=== PATIENT | female | born 1985 | race Caucasian/White ===

== ENCOUNTER 2020-07-14 09:05 | Outpatient (REF) | payer OTHER, SELFPAY ==
--- NOTE | ~2020-07-14 | MM_ITS ---
EXAMINATION: MM DIAGNOSTIC DIGITAL BREAST TOMOSYNTHESIS, BILATERAL US TARGETED LEFT BREAST ULTRASOUND CLINICAL INFORMATION: Left breast lump which patient says feels smaller The lifetime risk of breast cancer based on the Tyrer-Cuzick Model is 8.6%. COMPARISON: Mammography: None. TECHNIQUE: Digital mammography is performed in craniocaudal and mediolateral oblique views. Digital breast tomosynthesis is performed in implant-displaced craniocaudal and implant-displaced mediolateral oblique views. Synthesized 2D images are generated from the tomosynthesis. Computer-aided detection (CAD) is performed for this exam. Targeted left breast ultrasound. FINDINGS: There are scattered areas of fibroglandular density (ACR BI-RADS breast composition Category b). The implant contours are unremarkable. There are no significant masses, abnormal calcifications, or other abnormalities. Targeted left breast ultrasound in region of palpable area at the 8-12 o'clock position, about the areolar was performed. No abnormal cystic or solid mass identified. No region of abnormal distal sound shadowing. No dermal lesion identified. Results are discussed with the patient at time of visit. MM/MM tomosynthesis diag imp BI IMPRESSION: No specific mammographic or ultrasound findings to suggest malignancy. ASSESSMENT: BI-RADS 1: Negative RECOMMENDATION: Clinical management. This patient's information was entered into a reminder system with a target due date for their next mammogram.
--- NOTE | ~2020-07-14 | US_ITS ---
EXAMINATION: US DIAGNOSTIC ULTRASOUND BREAST, BILATERAL CLINICAL INFORMATION: Palpable abnormality which has gotten smaller and was originally read and hot COMPARISON: Mammography of same day. TECHNIQUE: Ultrasound of the breast is performed with real-time peres scale imaging and color Doppler. FINDINGS: Targeted left breast ultrasound in region of palpable area at the 8 to 12:00 position about the areolar was performed. No abnormal cystic or solid mass identified. No region of abnormal distal sound shadowing. No dermal lesion identified. Results are discussed with the patient at time of visit. US/US breast LT limited IMPRESSION: No specific mammographic or ultrasound findings to suggest malignancy. ASSESSMENT: BI-RADS 1: Negative RECOMMENDATION: Clinical management
== END 2020-07-14 09:06 | disposition home or self-care (01) ==
LOC: HO.MAMMO 09:05
PROVIDERS: PCP Internal Medicine; Visit Provider Internal Medicine
DX: N63.25 Unspecified lump in the left breast, overlapping quadrants (principal)
CPT/HCPCS: 76642; 77062; 77066

== ENCOUNTER → 2021-04-19 08:34 | Outpatient (BNVA) | payer OTHER, SELFPAY | PROVIDERS: PCP Internal Medicine; Referring Provider Internal Medicine; Visit Provider Nurse Practitioner | DX: K58.0 Irritable bowel syndrome with diarrhea (principal) | CPT/HCPCS: 99202 ==

== ENCOUNTER 2023-03-27 09:42 | Outpatient (REF) | payer OTHER, SELFPAY ==
[2023-03-27 14:46] LABS: MANUAL DIFF FLAG NO
[2023-03-27 14:50] LABS: Basophils Percent Auto 0.4 % (0-2); Eosinophils Absolute Auto 0.1 X10*3/uL (0.0-0.4); Eosinophils Percent Auto 2.3 % (0-4); Hematocrit 41.2 % (37.0-47.0); Hemoglobin 13.1 g/dl (12.0-16.0); Imm Gran Abs Auto 0.02 X10*3/uL (0.00-0.03); Imm Gran Pct Auto 0.4 % (0.0-0.4); Lymphocytes Absolute Auto 1.7 X10*3/uL (1.2-4.9); Lymphocytes Percent Auto 29.6 % (20-40); Mean Corpuscular HGB Conc 31.8 g/dl (31.0-35.0); Mean Corpuscular Hemoglobin 27.9 pg (27.0-33.0); Mean Corpuscular Volume 87.7 fL (80.0-98.0); Mean Platelet Volume 10.3 fL (9.4-12.3); Monocytes Absolute Auto 0.3 X10*3/uL (0.1-1.2); Monocytes Percent Auto 5.3 % (2-11); Neutrophils Absolute Auto 3.5 x10*3/uL (2.0-8.3); Platelet Count 378 X10*3/uL (160-400); Red Cell Distribution Width 14.5 % (11.0-16.0); White Blood Count 5.6 X10*3/uL (4.8-10.8)
[2023-03-27 14:56] LABS: Estimated Average Glucose 103 mg/dL; Hemoglobin A1C 112.9251 umol/L; Hemoglobin A1c % 5.2 % (<6.0)
[2023-03-27 15:28] LABS: Alanine Aminotransferase 41 U/L (0-31); Albumin Level 4.4 g/dL (3.5-5.0); Alkaline Phosphatase 84 U/L (39-117); Anion Gap 12 (12-20); Aspartate Amino Transferase 31 U/L (5-31); Bilirubin Total 0.2 mg/dL (0.0-1.0); Blood Urea Nitrogen 10 mg/dL (9-16); Calcium 9.8 mg/dL (8.4-10.2); Carbon Dioxide 24 mmol/L (22-29); Chloride 109 mmol/L (96-108); Cholesterol 183 mg/dL (<200); Estimated Glomerular Filt Rate > 60; Glucose Fasting 80 mg/dL (60-99); HDL Cholesterol 41 mg/dL (>40); LDL Cholesterol Calculated 103 mg/dL (<100); Potassium 4.1 mmol/L (3.3-5.1); Sodium 141 mmol/L (135-145); TSH reflex Free T4 2.24 uIU/mL (0.32-4.0); Total Protein 7.6 g/dL (6.5-8.0); Triglycerides 196 mg/dL (<150)
[2023-03-28 08:54] LABS: ~HepC Num1 0.11 S/CO (0.00-0.79); ~Hepatitis C Antibody Nonreactive (Nonreactive)
[2023-03-30 16:39] LABS: HIV RNA PCR Qn Copies Not Detected Copies/mL; HIV RNA PCR Qn Log Copies Not Detected Log cps/mL
== END 2023-03-27 09:43 | disposition home or self-care (01) ==
LOC: HO.CHCLDS 09:42
PROVIDERS: Visit Provider Internal Medicine
DX: Z00.00 Encounter for general adult medical examination without abnormal findings (principal)
CPT/HCPCS: 36415; 80053; 80061; 83036; 84443; 85025; 86803; 87536; 87900

== ENCOUNTER 2023-06-20 08:33 | Outpatient (REF) | payer OTHER, SELFPAY ==
[2023-06-20 11:21] LABS: MANUAL DIFF FLAG NO
[2023-06-20 11:25] LABS: Basophils Percent Auto 0.4 % (0-2); Hematocrit 41.2 % (37.0-47.0); Hemoglobin 13.4 g/dl (12.0-16.0); Imm Gran Abs Auto 0.03 X10*3/uL (0.00-0.03); Imm Gran Pct Auto 0.4 % (0.0-0.4); Lymphocytes Percent Auto 29.3 % (20-40); Mean Corpuscular HGB Conc 32.5 g/dl (31.0-35.0); Mean Corpuscular Hemoglobin 27.7 pg (27.0-33.0); Mean Corpuscular Volume 85.3 fL (80.0-98.0); Mean Platelet Volume 10.1 fL (9.4-12.3); Monocytes Absolute Auto 0.4 X10*3/uL (0.1-1.2); Neutrophils Absolute Auto 4.4 x10*3/uL (2.0-8.3); Neutrophils Percent Auto 63.9 % (45-73); Platelet Count 375 X10*3/uL (160-400); Red Blood Count 4.83 X10*6/uL (4.20-5.50); Red Cell Distribution Width 13.6 % (11.0-16.0); White Blood Count 6.9 X10*3/uL (4.8-10.8)
[2023-06-20 12:14] LABS: Estimated Average Glucose 97 mg/dL
[2023-06-20 13:54] LABS: Alanine Aminotransferase 43 U/L (0-31); Albumin Level 4.6 g/dL (3.5-5.0); Alkaline Phosphatase 95 U/L (39-117); Anion Gap 13 (12-20); Aspartate Amino Transferase 30 U/L (5-31); Bilirubin Direct 0.1 mg/dL (0.0-0.5); Bilirubin Total 0.3 mg/dL (0.0-1.0); Blood Urea Nitrogen 9 mg/dL (9-16); Carbon Dioxide 27 mmol/L (22-29); Chloride 106 mmol/L (96-108); Cholesterol 172 mg/dL (<200); Estimated Glomerular Filt Rate > 60; Free T4 (Free Thyroxine) 0.86 ng/dL (0.71-1.85); Glucose Random 96 mg/dL (60-115); HCG Quantitative < 2 mIU/mL; HDL Cholesterol 38 mg/dL (>40); LDL Cholesterol Calculated 73 mg/dL (<100); Potassium 4.3 mmol/L (3.3-5.1); Sodium 142 mmol/L (135-145); Thyroid Stimulating Hormone 1.76 uIU/mL (0.32-4.0); Total Protein 7.9 g/dL (6.5-8.0); Triglycerides 305 mg/dL (<150)
== END 2023-06-20 08:34 | disposition home or self-care (01) ==
LOC: HO.HHCL 08:33
PROVIDERS: Visit Provider Nurse Practitioner Family
DX: Z13.6 Encounter for screening for cardiovascular disorders (principal); F29 Unspecified psychosis not due to a substance or known physiological condition
CPT/HCPCS: 36415; 80053; 80061; 82248; 83036; 84439; 84443; 84702; 85025

== ENCOUNTER 2023-07-12 14:05 | Outpatient (REF) | payer OTHER, SELFPAY ==
[2023-07-13 04:04] LABS: HIV AB/AG Nonreactive (Nonreactive); HIV Num 1 0.04 S/CO (0.00-0.99); ~HepC Num1 0.12 S/CO (0.00-0.79); ~Hepatitis C Antibody Nonreactive (Nonreactive)
[2023-07-16 09:28] LABS: RPR Rapid Plasma Reagin NON-REACTIVE (NON-REACTIVE)
== END 2023-07-12 14:06 | disposition home or self-care (01) ==
LOC: HO.HHCL 14:05
PROVIDERS: Visit Provider General Practice
DX: R30.0 Dysuria (principal)
CPT/HCPCS: 36415; 86592; 86803; 87389

== ENCOUNTER 2023-09-18 13:04 | Outpatient (REF) | payer OTHER, SELFPAY ==
[2023-09-18 14:42] LABS: Appearance Urine Cloudy; Color Urine Yellow; Glucose Urine UA Negative (Negative); Leukocyte Esterase Urine Negative (Negative); Nitrite Urine Negative (Negative); PH 5.5 (5.0-9.0); Specific Gravity - Urine 1.025 (1.005-1.025); Urine Blood Negative (Negative); Urine Ketones Negative (Negative); Urine Protein Negative (Neg-Trace)
[2023-09-18 14:58] LABS: Bacteria Urine Trace (None Seen); Hyaline Casts Urine 0-2 /LPF (0-2); RBC Urine 0-2 /HPF (0-2); WBC Urine 0-5 /HPF (0-5)
[2023-09-18 16:15] LABS: CT PCR NOT DETECTED (Not Detect.); NG PCR NOT DETECTED (Not Detect.)
== END 2023-09-18 13:05 | disposition home or self-care (01) ==
LOC: HO.CHCLDS 13:04
PROVIDERS: General Practice; Visit Provider Internal Medicine
DX: R35.0 Frequency of micturition (principal); R30.0 Dysuria
CPT/HCPCS: 0353U; 81001

== ENCOUNTER 2025-01-18 09:41 | Emergency (ER) | payer OTHER, SELFPAY ==
[2025-01-18] VITALS (7 sets, daily range): BP systolic 110–118; BP diastolic 61–73; PULSE 70–87; RESP 16–20; TEMP 36.3–36.7; O2SAT 97–98; BMI 32.9
--- NOTE | ~2025-01-18 | XR_ITS ---
CLINICAL HISTORY: erect position only 1 view abdomen Comparison: None provided Findings: No pneumoperitoneum or pneumatosis. Moderate fecal retention within the proximal colon. No bowel dilatation. No abnormal calcifications. No acute fractures. IMPRESSION: Nonspecific bowel gas pattern without evidence of an obstructive process. This document has been electronically signed by: Chaparrita Pizano MD on 01/18/2025 16:12:32
[2025-01-18 10:05] LABS: MANUAL DIFF FLAG NO
[2025-01-18 10:07] LABS: Hematocrit 36.4 % (37.0-47.0); Hemoglobin 12.9 g/dl (12.0-16.0); Imm Gran Abs Auto 0.01 X10*3/uL (0.00-0.03); Imm Gran Pct Auto 0.1 % (0.0-0.4); Lymphocytes Absolute Auto 1.6 X10*3/uL (1.2-4.9); Mean Corpuscular HGB Conc 35.4 g/dl (31.0-35.0); Mean Corpuscular Hemoglobin 29.7 pg (27.0-33.0); Mean Corpuscular Volume 83.7 fL (80.0-98.0); NRBC Abs Auto 0.000 X10*3/uL (0.0-0.012); NRBC Pct Auto 0.0 /100WBC (0.0-0.2); Platelet Count 339 X10*3/uL (160-400); Red Blood Count 4.35 X10*6/uL (4.20-5.50); White Blood Count 6.8 X10*3/uL (4.8-10.8)
[2025-01-18 10:08] LABS: Appearance Urine Clear; Glucose Urine UA Negative (Negative); PH 5.5 (5.0-9.0); Specific Gravity - Urine 1.020 (1.005-1.025)
--- NOTE | 2025-01-18 10:17 | PC.NURSE ---
Pt went to [facility] yestrday with same complaint. They took CT scan, EKG, blood work. All negative. Pt reports Left side abdominal pain 10/10, nausea, vomiting. Took Tylenol and Ibuprofen yesterday, none today. Heat and other home remedies not working. Has not had this kind of pain before. Walking helps. LMP 01/12/25. Hx tubal ligation, takes trazadone, xyprexa, clonidine at home.
--- OUTSIDE RECORDS SUMMARY | 2025-01-18 10:21 | XMS_ITS | Encounter Summary ---
Author Organization [employer] Address [address] [place] [address] Care Team Providers Care Seed Cleaner Operator Name Role Phone Daniel Gutierrez MD Primary Care Prov ider Reason for Visit * Reason Onset Date Comments Med Refill 09/13/2022 Encounter Details Date Type Department Care Team ([facility] Contact Info) Description 09/13/2022 Telephone [facility] MED & PEDS [address] [place] [address] Daniel Gutierrez MD [address] [place] [address] Med Refill Social History Tobacco Use Types Packs/Day Years Used Date Smoking Tobacco: Never Assessed Comments Unknown Sex and Gender Information Value Date Recorded Sex Assigned at Female 02/13/2022 10:17 AM EDT Legal Sex Female 10:17 AM EDT Gender Identity Female 02/13/2022 10:17 AM EDT Sexual Orientation Straight 02/13/2022 10 :17 AM EDT documented as of this encounter Miscellaneous Notes * Telephone Encounter - Walt Strauss - 09/13/2022 10:13 AM EDT Tc from pt requesting med refill on nicotine (Nicoderm, Step 1) 21 MG/24HR patch Please sent to [facility]/pharmacy #[id number] - [place]ABI PEREZ - [address] [place] [address] documented in this encounter Plan of Treatment Upcoming Encounters Date Type Department Care Team (Late st Contact Info) Description 01/19/2025 9:15 AM EDT Office Visit [facility] MED & PEDS [address] [place] [address] Agustina Pérez MD [address] [place] [address] documented as of this encounter Visit Diagnoses Not on filedocumented in this encounter Care Teams Seed Cleaner Operator Relationship Specialty Start Date End Date Daniel Gutierrez MD [address] [place] [address] PCP - General Internal Medicine 08/28/19 [facility] 08/28/19 documented as of this encounter
--- OUTSIDE RECORDS SUMMARY | 2025-01-18 10:21 | XMS_ITS | Encounter Summary ---
Author Organization [employer] Address [address] [facility] 7 [place] [address] Care Team Providers Care Tier Lift Truck Operator Name Role Phone Daniel Gutierrez MD Primary Care Prov ider Reason for Visit * Reason Onset Date Comments Durable Medical Equipment 07/24/2024 Encounter Details Date Type Department Care Team ([facility] st Contact Info) Description 07/24/2024 Telephone [facility] MEDICINE [address] [place] [address] Daniel Gutierrez MD [address] [place] [address] Durable Medical Equipment Social History Tobacco Use Types Packs/Day Years Used Date Smoking Tobacco: Former Cigarettes Smokeless Tobacco: Never Depression Answer Date Recorded Patient Health Questionnaire-9 Score 0 03/27/2023 Patient Health Questionnaire-9 Score 0 03/27/2023 Last PHQ-9: Questionnaire Data Not on file 1 05/28/2022 Housing Stability Answer Date Recorded What is your housing situation today? I have charles gilman 03/20/[address] you li ve. Do you have problems with any of the following? None of the above 03/20/2023 Food Insecurity Answer Date Recorded Within the past 12 months, y ou worried that your food would run out before you got money to buy more: Never True 03/20/2023 Within the past 12 months,th e food you bought just didn't last and you didn't have enough money to get more: Never True 08/2022 Transportation Answer Date Recorded In the past 12 months, has l ack of transportation kept you from medical appts, meetings, work or from getting things needed for daily living? No 03/20/2023 Utilities Answer Date Recorded In the past 12 months, has t he electric, gas, oil or water company threatened to shut off services in your home? No 03/20/2023 Depression Answer Date Recorded Patient Health Questionnaire-2 Score 0 03/27/2023 Comments Unknown Sex and Gender Information Value Date Recorded Sex Assigned at Female 02/13/2022 10:17 AM EDT Legal Sex Female 10:17 AM EDT Gender Identity Female 02/13/2022 10:17 AM EDT Sexual Orientation Straight 02/13/2022 10 :17 AM EDT documented as of this encounter Miscellaneous Notes * Telephone Encounter - Natalia Hough LPN - 07/25/2024 10:05 AM EDT Satnam Persaud MD , Can you please review Bere Jones 's chart and advised on next steps to complete request for this patient. Natalia Huogh LPN Tc from pt requesting wipes, pt report using 1/2 package a day. Laboratory Animal Facility Supervisor asked how many she needs, she states all that you can give me . No quantity was provided to screenplay writer. * Telephone Encounter - Jenn Lorenz - 07/24/2024 9:43 AM EDT Tc from pt requesting wipes, pt report using 1/2 package a day. Laboratory Animal Facility Supervisor asked how many she needs, she states all that you can give me . No quantity was provided to screenplay writer. documented in this encounter Plan of Treatment Upcoming Encounters Date Type Department Care Team (Late st Contact Info) Description 01/19/2025 9:15 AM EDT Office Visit [facility] MED & PEDS [address] [place] [address] Agustina Pérez MD [address] [place] [address] documented as of this encounter Visit Diagnoses Not on filedocumented in this encounter Additional Health Concerns Assessment Noted Time PHQ-9 Depression Total Score: 0 03/27/20 23 8:55 AM EST documented as of this encounter Care Teams Tier Lift Truck Operator Relationship Specialty Start Date End Date Daniel Gutierrez MD [address] [place] [address] PCP - General Internal Medicine 08/28/19 [facility] 08/28/19 documented as of this encounter
--- OUTSIDE RECORDS SUMMARY | 2025-01-18 10:21 | XMS_ITS | Encounter Summary ---
Author Organization [employer] Address [address] [facility] 7 [place] [address] Care Team Providers Care Books Salesperson Name Role Phone Daniel Gutierrez MD Primary Care Prov ider Reason for Visit * Reason Onset Date Comments Results 03/29/2023 Encounter Details Date Type Department Care Team ([facility] st Contact Info) Description 03/29/2023 Telephone [facility] MEDICINE [address] [place] [address] Daniel Gutierrez MD [address] [place] [address] Results Social History Tobacco Use Types Packs/Day Years Used Date Smoking Tobacco: Every Day Cigarettes Depression Answer Date Recorded Patient Health Questionnaire-9 [...] encounter Miscellaneous Notes * Telephone Encounter - Aubrie Schrader RN - 03/29/2023 3:11 PM EST Returned call to pt regarding message below. Pt informed of lab results WNL except for lifestyle modifications to lower triglyceride levels. Pt verbalized understanding and agrees with plan. * Telephone Encounter - Joselito Pleitez - 03/29/2023 11:01 AM EST Tc from patient requesting call back in regards to lab orders would like to know the results. documented in this encounter Plan of Treatment Upcoming Encounters Date Type Department Care Team (Late st Contact Info) Description 01/19/2025 9:15 AM EDT Office Visit [facility] MED & PEDS [address] [place] [address] Agustina Pérez MD [address] [place] [address] documented as of this encounter Visit Diagnoses Not on filedocumented in this encounter Additional Health Concerns Assessment Noted Time PHQ-9 Depression Total Score: 0 03/27/20 23 8:55 AM EST documented as of this encounter Care Teams Books Salesperson Relationship Specialty Start Date End Date Daniel Gutierrez MD [address] [place] [address] PCP - General Internal Medicine 08/28/19 [facility] 08/28/19 documented as of this encounter
--- OUTSIDE RECORDS SUMMARY | 2025-01-18 10:21 | XMS_ITS | Encounter Summary ---
Author Organization [employer] Address [address] [place] [address] Care Team Providers Care Clinical Rehabilitation Liaison Name Role Phone Daniel Gutierrez MD Primary Care Prov ider Reason for Visit * Reason Onset Date Comments Medication Question 04/03/2023 Encounter Details Date Type Department Care Team ([facility] st Contact Info) Description 04/03/2023 Telephone [facility] CH[facility] MED & PEDS [address] [place] [address] Daniel Gutierrez MD [address] [place] [address] Medication Question Social History Tobacco Use Types Packs/Day Years [...] encounter Miscellaneous Notes * Telephone Encounter - Joselito Pleitez - 04/06/2023 9:36 AM EST Tc from patient calling to requesting the status in regards to message below * Telephone Encounter - Joselito Pleitez - 04/05/2023 10:43 AM EST Tc from patient calling to request staus in regards to message below * Telephone Encounter - Bobbi Sifuentes RN - 04/03/2023 4:21 PM EST TC placed to patient to follow up on request for vitamins. Patient reports that she is not and is not planning to get . She reports that her psychiatrist wants her to take aprenatal or multivitamin because she is currently taking three psych medications daily (clonidine, trazodone, and zyprexa) and it is important for her to have adequate vitamins and minerals. Routing to PCP for review of request for script for prenatals or multivitamins. * Telephone Encounter - Walt Strauss - 04/03/2023 12:29 PM EST Tc from pt requesting if provider could prescribed vitamins due to lack of vitamins. Pt states she was advised by her Phychiatric of this. Please contact pt @ [phone] documented in this encounter Plan of Treatment Upcoming Encounters Date Type Department Care Team ([facility] st Contact Info) Description 01/19/2025 9:15 AM EDT Office Visit [facility] MED & PEDS [address] [place], [place] [phone] Agustina Pérez MD [address] [place] [address] documented as of this encounter Visit Diagnoses Not on filedocumented in this encounter Additional Health Concerns Assessment Noted Time PHQ-9 Depression Total Score: 0 03/27/20 23 8:55 AM EST documented as of this encounter Care Teams Clinical Rehabilitation Liaison Relationship Specialty Start Date End Date Daniel Gutierrez MD [address] [place] [address] PCP - General Internal Medicine 08/28/19 [facility] 08/28/19 documented as of this encounter
--- OUTSIDE RECORDS SUMMARY | 2025-01-18 10:21 | XMS_ITS | Encounter Summary ---
Author Organization [employer] Address [address] [facility] 7t [place] [address] Care Team Providers Care Spring Former Name Role Phone Daniel Gutierrez MD Primary Care Prov ider Encounter Details Date Type Department Care Team ([facility] st Contact Info) Description 01/17/2025 Telephone [facility] MEDICINE [address] [place], [place] [phone] Flower Geller NP [address] [place] [address] Social History Tobacco Use Types Packs/Day Years [...] encounter Miscellaneous Notes * Telephone Encounter - Flower Geller NP - 01/17/2025 8:53 PM EDT gold miner provider received message from NTT[employer] regarding patient with complains of of abdominal pain. Describes excruciating abdominal pain that is constant and feels like sharp, twisting and aching present x4 days. States pain starts in epigastric region and extends down to left pelvic area. Says shewas seen at [facility] last night with negative CT scan, EKG, urine, and blood tests . She has tried heating pads, tylenol, ibuprofen and single prilosec with no improvement. She is advised to return toED given degree of discomfort, however she refuses. She is agreeable to going to nearest urgent care and plans to do so Sunday am. Advised to seek help at different ED if symptoms should progress overnight. She verbalizes understanding. documented in this encounter Plan of Treatment Upcoming Encounters Date Type Department Care Team (Late st Contact Info) Description 01/19/2025 9:15 AM EDT Office Visit [facility] MED & PEDS [address] [place] [address] Agustina Pérez MD [address] [place] [address] documented as of this encounter Visit Diagnoses Not on filedocumented in this encounter Additional Health Concerns Assessment Noted Time PHQ-9 Depression Total Score: 0 03/27/20 8:55 AM EST documented as of this encounter Care Teams Spring Former Relationship Specialty Start Date End Date Daniel Gutierrez MD [address] [place] [address] PCP - General Internal Medicine 08/28/19 [facility] 08/28/19 documented as of this encounter
--- OUTSIDE RECORDS SUMMARY | 2025-01-18 10:21 | XMS_ITS | Encounter Summary ---
Author Organization [employer] Address [address] [place] [address] 7 [place] [address] Care Team Providers Care Buyers' Agent Name Role Phone Daniel Gutierrez MD Primary Care Prov ider Encounter Details Date Type Department Care Team (Late st Contact Info) Description 04/26/2022 Orders Only [facility] MEDICINE [address] [place], [place] [phone] Daniel Gutierrez MD [address] [place], [place] [phone] Smoker Social History Tobacco Use Types Packs/Day Years Used Date Smoking Tobacco: Never Assessed Comments Unknown Sex and Gender Information Value Date Recorded Sex Assigned at Female 02/13/2022 10:17 AM EDT Legal Sex Female 10:17 AM EDT Gender Identity Female 02/13/2022 10:17 AM EDT Sexual Orientation Straight 02/13/2022 10 :17 AM EDT COVID-19 Exposure Response Date Recorded In the last 10 days, have yo u been in contact with someone who was confirmed or suspected to have Coronavirus/COVID-19? No / Unsure 04/28/2022 9:02 AM EST documented as of this encounter Plan of Treatment Upcoming Encounters Date Type Department Care Team (Late st Contact Info) Description 01/19/2025 9:15 AM EDT Office Visit [facility] MED & PEDS [address] [place], [place] [phone] Agustina Pérez MD [address] [place], [place] [phone] documented as of this encounter Visit Diagnoses Diagnosis Smoker Tobacco use disorder documented in this encounter Care Teams Buyers' Agent Relationship Specialty Start Date End Date Daniel Gutierrez MD [address] [place] [address] PCP - General Internal Medicine 08/28/19 [facility] [place] [facility] 08/28/19 documented as of this encounter
--- OUTSIDE RECORDS SUMMARY | 2025-01-18 10:21 | XMS_ITS | Encounter Summary ---
Author Organization [employer] Address [address] [place] [address] [place], [place] [address] Care Team Providers Care Conveyor Operator Name Role Phone Daniel Gutierrez MD Primary Care Prov ider Encounter Details Date Type Department Care Team ([facility] Contact Info) Description 02/22/2023 Orders Only [facility] MED & PEDS [address] [place] [address] Daniel Gutierrez MD [address] [place] [address] Social History Tobacco Use Types Packs/Day Years Used Date Smoking Tobacco: Every Day Cigarettes Comments Unknown Sex and Gender Information Value Date Recorded Sex Assigned at Female 02/13/2022 10:17 AM EDT Legal Sex Female 10:17 AM EDT Gender Identity Female 02/13/2022 10:17 AM EDT Sexual Orientation Straight 02/13/2022 10 :17 AM EDT documented as of this encounter Plan of Treatment Upcoming Encounters Date Type Department Care Team (Late st Contact Info) Description 01/19/2025 9:15 AM EDT Office Visit [facility] MED & PEDS [address] [place], [place] [phone] Agustina Pérez MD [address] [place] [address] documented as of this encounter Visit Diagnoses Not on filedocumented in this encounter Care Teams Conveyor Operator Relationship Specialty Start Date End Date Daniel Gutierrez MD [address] [place] [address] PCP - General Internal Medicine 08/28/19 [facility] 08/28/19 documented as of this encounter
--- OUTSIDE RECORDS SUMMARY | 2025-01-18 10:21 | XMS_ITS | Encounter Summary ---
Author Organization [employer] Address [address] [place] [address] Care Team Providers Care Switchboard Receptionist Name Role Phone Daniel Gutierrez MD Primary Care Prov ider Reason for Visit * Reason Onset Date Comments Medication Question 08/10/2023 Encounter Details Date Type Department Care Team ([facility] st Contact Info) Description 08/10/2023 Telephone [facility] MED & PEDS [address] [place] [address] Daniel Gutierrez MD [address] [place] [address] Medication Question Social History Tobacco Use Types [...] encounter Miscellaneous Notes * Telephone Encounter - Wing Cameron RN - 08/13/2023 2:19 PM EDT Tc to pt who reports applying cream twice day for almost a month and the rashes on her back and chest are not getting better and are described as 'scabby . Scheduled telehealth appt with PCP today at3:15 pm. Pt verbalized understanding and agreement with plan. * Telephone Encounter - Chyna Gallardo - 08/10/2023 11:06 AM EDT Tc from pt states nystatin (Mycostatin) cream is not working. Please contact pt at [phone] documented in this encounter Plan of Treatment Upcoming Encounters Date Type Department Care Team (Late st Contact Info) Description 01/19/2025 9:15 AM EDT Office Visit [facility] MED & PEDS [address] [place] [address] Agustina Pérez MD [address] [place] [address] documented as of this encounter Visit Diagnoses Not on filedocumented in this encounter Additional Health Concerns Assessment Noted Time PHQ-9 Depression Total Score: 0 03/27/20 23 8:55 AM EST documented as of this encounter Care Teams Switchboard Receptionist Relationship Specialty Start Date End Date Daniel Gutierrez MD [address] [place] [address] PCP - General Internal Medicine 08/28/19 [facility] 08/28/19 documented as of this encounter
--- OUTSIDE RECORDS SUMMARY | 2025-01-18 10:21 | XMS_ITS | Encounter Summary ---
Author Organization [employer] Address [address] [place] [address] Care Team Providers Care Care Program Resident Name Role Phone Daniel Gutierrez MD Primary Care Prov ider Encounter Details Date Type Department Care Team (Late st Contact Info) Description 07/12/2022 Abstract [facility] MEDICINE [address] [place] [address] Daniel Gutierrez MD [address] [place] [address] Social History Tobacco Use Types Packs/Day Years [...] Description 01/19/2025 9:15 AM EDT Office Visit [facility] MED & PEDS [address] [place], [place] [phone] Agustina Pérez MD [address] [place], [place] [phone] documented as of this encounter Visit Diagnoses Not on filedocumented in this encounter Care Teams Care Program Resident Relationship Specialty Start Date End Date Daniel Gutierrez MD [address] [place] [address] PCP - General Internal Medicine 08/28/19 [facility] 08/28/19 documented as of this encounter
--- OUTSIDE RECORDS SUMMARY | 2025-01-18 10:21 | XMS_ITS | Encounter Summary ---
Author Organization [facility] [employer] Address [address] [facility] 7 [place] [address] Care Team Providers Care Photographers' Model Name Role Phone Daniel Gutierrez MD Primary Care Prov ider Reason for Visit * Reason Onset Date Comments Nurse Triage 02/13/2024 Encounter Details Date Type Department Care Team (Late st Contact Info) Description 02/13/2024 Telephone [facility] MEDICINE [address] [place] [address] Daniel Gutierrez MD [address] [place] [address] Nurse Triage Social History Tobacco Use Types Packs/Day Years [...] AM EDT documented as of this encounter Functional Status * Over the last 2 weeks, how often have you been bothered by any of the following problems? Question Answer Date of Assessment Author Feeling nervous, anxious, or on edge 1 01/16 10:02 AM Elke Wall [place] Not being able to stop or co ntrol worrying 0 02/14/2024 10:02 AM Elke Wall [place] Worrying too much about diff erent things 0 02/14/2024 10:02 AM Elke Wall [place] Trouble relaxing 0 02/14/2024 10:02 AM Elke Wall MA Being so restless that it is hard to sit still 0 02/14/2024 10:02 AM Elke Wall MA Becoming easily annoyed or irritable 0 01/16 10:02 AM Elke Wall [place] Feeling afraid as if somethi ng awful might happen 0 02/14/2024 10:02 AM Elke Wall [place] REGULO-7 Total Score 1 02/14/2024 10:02 AM Elke Wall [place] documented as of this encounter Miscellaneous Notes * Telephone Encounter - Farideh Hawk RN - 02/13/2024 12:31 PM EDT Triage call Pt reports increased anxiety due to new neighbor. Pt reports the new neighbor is banging on Pt wall to request lower television volume, has called the police due to this complaint. Policehave come to Pt home to follow up complaint without finding any reason for this complaint. Pt has gone to police department and filed a counter complaint as well. Pt is requesting a note from regarding Pt anxiety and the concern for this harrassment as causing Pt to become more anxious at home. Pt denies suicidal ideation or desire to hurt any one. Pt is taking medication as prescribed by psychiatrist, clonidine, trazadone and zyprexa and is feeling fine. Pt is not in any distress during the triage call and is requesting to speak with PCP. TSK visit with PCP Dr. Solomon scheduled for02/14/24 @ 1015am. Pt agrees with disposition and insurance is verified as active prior to booking. Protocol Used: Anxiety and Panic Attack (Adult) Protocol-Based Disposition: See in Office or Video Visit within 3 Days Video visit offered and caller accepted Positive Triage Question: * Patient wants to be seen * All higher-acuity triage questions were negative Care Advice Discussed: * Note to Triager - Anxiety Symptoms * Reassurance and Education - Anxiety * Reasons To Call Back - Anxiety or panic attacks continue - You feel like harming yourself - You become worse * Telephone Encounter - Ricardo Dwyer - 02/13/2024 12:11 PM EDT Symptom: Anxiety or Panic Attack Outcome: Schedule an appointment to be seen within 3 days Reason: Caller denied all higher acuity questions documented in this encounter Plan of Treatment Upcoming Encounters Date Type Department Care Team (Late st Contact Info) Description 01/19/2025 9:15 AM EDT Office Visit [facility] MED & PEDS [address] [place] [address] Agustina Pérez MD [address] [place] [address] documented as of this encounter Visit Diagnoses Not on filedocumented in this encounter Additional Health Concerns Assessment Noted Time PHQ-9 Depression Total Score: 0 03/27/20 23 8:55 AM EST documented as of this encounter Care Teams Photographers' Model Relationship Specialty Start Date End Date Daniel Gutierrez MD [address] [place] [id number] PCP - General Internal Medicine 08/28/19 [facility] 08/28/19 documented as of this encounter
--- OUTSIDE RECORDS SUMMARY | 2025-01-18 10:21 | XMS_ITS | Encounter Summary ---
Author Organization [employer] Address [address] [address] Care Team Providers Care Engraver Letter Name Role Phone Daniel Gutierrez MD Primary Care Prov ider Reason for Visit * Reason Onset Date Comments Lab Orders 03/14/2023 Encounter Details Date Type Department Care Team (Late st Contact Info) Description 03/14/2023 Telephone [facility] MEDICINE [address] [place] [address] Daniel Gutierrez MD [address] [place] [address] Lab Orders Social History Tobacco Use Types Packs/Day Years [...] Telephone Encounter - Aubrie Schrader RN - 03/14/2023 4:29 PM EST Pt is scheduled to see you on 03/27/23 and is requesting routine lab work to be done prior to appt.Please review and advise if orders can be placed. * Telephone Encounter - Bridget Ruelas - 03/14/2023 9:11 AM EST Tc from pt requesting blood work orders before appt on 03/27/2023. Pt is requesting a call back when orders are in the system to make sure is what's she need. documented in this encounter Plan of Treatment Upcoming Encounters Date Type Department Care Team (Late st Contact Info) Description 01/19/2025 9:15 AM EDT Office Visit [facility] MED & PEDS [address] [place], [place] [phone] Agustina Pérez MD [address] [place] [address] documented as of this encounter Visit Diagnoses Not on filedocumented in this encounter Care Teams Engraver Letter Relationship Specialty Start Date End Date SolomonDaniel Wilson MD [address] [place], [place] [phone] PCP - General Internal Medicine 08/28/19 [facility] 08/28/19 documented as of this encounter
--- OUTSIDE RECORDS SUMMARY | 2025-01-18 10:21 | XMS_ITS | Encounter Summary ---
Author Organization [employer] Address [address] [facility] 7t [place] [address] Care Team Providers Care Welt Cutter Name Role Phone Daniel Gutierrez MD Primary Care Prov ider Encounter Details Date Type Department Care Team ([facility] st Contact Info) Description 12/12/2023 Orders Only [facility] [address] [place], [place] [phone] Jaime Rose MD [address] [place], [place] [phone] Social History Tobacco Use Types Packs/Day Years [...] Description 01/19/2025 9:15 AM EDT Office Visit [facility] MED & PEDS [address] [place] [address] Agustina Pérez MD [address] [place] [address] documented as of this encounter Visit Diagnoses Not on filedocumented in this encounter Additional Health Concerns Assessment Noted Time PHQ-9 Depression Total Score: 0 03/27/20 23 8:55 AM EST documented as of this encounter Care Teams Welt Cutter Relationship Specialty Start Date End Date Daniel Gutierrez MD [address] [place] [address] PCP - General Internal Medicine 08/28/19 [facility] 08/28/19 documented as of this encounter
--- OUTSIDE RECORDS SUMMARY | 2025-01-18 10:21 | XMS_ITS | Encounter Summary ---
Author Organization [email or web address] Address [address] [place] [address] 7 [place] [address] Care Team Providers Care Manager Recruitment Name Role Phone Daniel Gutierrez MD Primary Care Prov ider Encounter Details Date Type Department Care Team ([facility] st Contact Info) Description 09/18/2023 Orders Only [facility] MED & PEDS [address] [place], [place] [phone] Daniel Gutierrez MD [address] [place] [address] Social History Tobacco Use Types Packs/Day Years Used Date Smoking Tobacco: Every Day Cigarettes Depression Answer Date Recorded Patient Health Questionnaire-9 Score 0 03/27/2023 Patient Health Questionnaire-9 Score 0 03/27/2023 Last PHQ-9: Questionnaire Data Not on file 1 05/28/2022 Housing Stability Answer Date Recorded What is your housing situation today? I have charles gimlan 03/20/[address] you li [...] Description 01/19/2025 9:15 AM EDT Office Visit [facility] MED & PEDS [address] [place] [address] Agustina Pérez MD [address] [place] [address] documented as of this encounter Visit Diagnoses Not on filedocumented in this encounter Additional Health Concerns Assessment Noted Time PHQ-9 Depression Total Score: 0 03/27/20 23 8:55 AM EST documented as of this encounter Care Teams Manager Recruitment Relationship Specialty Start Date End Date Daniel Gutierrez MD [address] [place] [address] PCP - General Internal Medicine 08/28/19 [facility] 08/28/19 documented as of this encounter
--- OUTSIDE RECORDS SUMMARY | 2025-01-18 10:21 | XMS_ITS | Encounter Summary ---
Author Organization [employer] Address [address] [facility] 7 [place] [address] Care Team Providers Care Collections Rep Name Role Phone Daniel Gutierrez MD Primary Care Prov ider Reason for Visit * Reason Onset Date Comments Med Refill 11/20/2024 Encounter Details Date Type Department Care Team (Late st Contact Info) Description 11/20/2024 Telephone [facility] MEDICINE [address] [place] [address] Daniel Gutierrez MD [address] [place] [address] Med Refill Social History Tobacco Use Types [...] Telephone Encounter - Wing Cameron RN - 12/05/2024 11:40 AM EDT Tc to pt to relay that patches were ordered by PCP today and should be ready soon. Pt reports she is already on her way to get them. * Telephone Encounter - Ricardo Dwyer - 12/04/2024 3:53 PM EDT Tc from pt calling in regards to message prior stating she not received anything back in two weeks. * Telephone Encounter - Lyubov Stern - 12/01/2024 12:49 PM EDT Tc from pt requesting to speak to accounting office manager regarding medication refill request nicotine (Nicoderm, Step 1) 21 MG/24HR patch * Telephone Encounter - Lyubov Stern - 11/27/2024 10:38 AM EDT Tc from pt requesting status on medication refill. * Telephone Encounter - Mary Ellen Roberts LPN - 11/20/2024 11:30 AM EDT Please review medication is not on current med list * Telephone Encounter - Frederick Liu - 11/20/2024 11:23 AM EDT TC from pt requesting medication refill. Medications needing refill : nicotine (Nicoderm, Step 1) 21 MG/24HR patch To be sent to: [facility]/pharmacy #[id number] - [place] - [address] [place] [address] documented in this encounter Plan of Treatment Upcoming Encounters Date Type Department Care Team ([facility] st Contact Info) Description 01/19/2025 9:15 AM EDT Office Visit [facility] MED & PEDS [address] [place] [address] Agustina Pérez MD [address] [place] [address] documented as of this encounter Visit Diagnoses Not on filedocumented in this encounter Additional Health Concerns Assessment Noted Time PHQ-9 Depression Total Score: 0 03/27/20 23 8:55 AM EST documented as of this encounter Care Teams Collections Rep Relationship Specialty Start Date End Date Daniel Gutierrez MD [address] [place] [address] PCP - General Internal Medicine 08/28/19 [facility] 08/28/19 documented as of this encounter
--- OUTSIDE RECORDS SUMMARY | 2025-01-18 10:21 | XMS_ITS | Encounter Summary ---
Author Organization [employer] Address [address] [place] [address] 7 [place] [address] Care Team Providers Care Grounds Worker Name Role Phone Daniel Gutierrez MD Primary Care Prov ider Encounter Details Date Type Department Care Team ([facility] st Contact Info) Description 05/16/2023 Orders Only [facility] MED & PEDS [address] [place] [address] Daniel Gutierrez MD [address] [place] [address] Social History Tobacco Use Types Packs/Day Years [...] Description 01/19/2025 9:15 AM EDT Office Visit [facility] MED & PEDS [address] [place] [address] Agustina Pérez MD [address] [place] [address] documented as of this encounter Visit Diagnoses Not on filedocumented in this encounter Additional Health Concerns Assessment Noted Time PHQ-9 Depression Total Score: 0 03/27/20 23 8:55 AM EST documented as of this encounter Care Teams Grounds Worker Relationship Specialty Start Date End Date Daniel Gutierrez MD [address] [place] [address] PCP - General Internal Medicine 08/28/19 [facility] 08/28/19 documented as of this encounter
--- OUTSIDE RECORDS SUMMARY | 2025-01-18 10:21 | XMS_ITS | Clinical Summary ---
Author Organization [employer] Address [address] [place] [address] 7[address] [place] [address] Care Team Providers Care Vulcanized Fiber Unit Operator Name Role Phone Daniel Gutierrez MD Primary Care Prov ider Allergies Active Allergy Reactions Criticality Noted Date Comments Nitrofurantoin Hives 03/01/2017 Other reaction(s): Hives Medications * This document contains information received from the source organization and may not represent a complete record from that organization. albuterol 108 (90 Base) MCG/ACT inhalerIndication s:Mild intermittent asthma without complication Inhale 2 puffs every 6 (six) hours if needed for wheezing. 18 g 11 3 Active famotidine (Pepcid) 20 MG tablet TAKE 1 TABLET BY MOUTH IF NEEDED IN THE MORNING AND AT BEDTIME FOR HEARTBURN 180 tablet 4 Active nystatin (Mycostatin) cream Apply topically every 12 (twelve) hours. 30 g 3 4 Active triamcinolone (Kenalog) 0.1 % cream Apply topically if needed in the morning and at bedtime (pain and swelling). 30 g 5 4 Active traZODone (Desyrel) 100 MG tablet Take 200 mg by mouth at bedtime. Active OLANZapine (ZyPREXA) 10 MG tablet Take 10 mg by mouth at bedtime. Active cloNIDine (Catapres) 0.3 MG tablet Take 0.3 mg by mouth 2 times daily. Active Vit-Fe Fumarate-FA ([facility] ) 27-0.8 MG tablet TAKE 1 TABLET BY MOUTH EVERY DAY IN THE MORNING 90 tablet 1 5 Active nicotine (Nicoderm CQ) 14 MG/24HR patch Place 1 patch on the skin 1 (one) time each day at the same time. 30 patch 5 Active nicotine (Nicoderm CQ) 21 MG/24HR patch Place 1 patch on the skin 1 (one) time each day at the same time. 30 patch 5 Active Active Problems Problem Noted Date Diagnosed Date Mixed stress and urge urinary incontinence 08/15 Assessment & Plan (11/10/2024 10:36 AM EDT): Patient will follow up with urogyn for possible surgery, will follow up reccomendations Assessment & Plan (08/15/2024 9:27 AM EDT): Will prescribe oxybutinin, kegel exercise reinforced, follow up in 2 weeks History of bilateral tubal ligation 12/12/2023 Anxiety 07/12/2023 Assessment & Plan (02/14/2024 10:39 AM EDT): Patient followed by therapist and psychiatrist, her symptoms have been exacerbated recently due to issues with neighbor, told to take clonidine from 2 to 3 times when symptoms of anxiety occur. Class 2 obesity 07/12/2023 Assessment & Plan (11/10/2024 10:35 AM EDT): Patient did not tolerated phentermine, she is going to the gym and trying to make diet changes, discussed benefits and encouraged to keep making little changes weekly, follow up as needed Assessment & Plan (08/15/2024 9:26 AM EDT): Will start on phentermine, risk vs benefits discussed, will follow up in 2 months Assessment & Plan (05/20/2024 9:25 PM EST): Discussed with patient clinical findings, encouraged to keep low fat/carb diet. Exercise 15-20 min every other day, follow up as needed depression 07/12/2023 Uncomplicated asthma 07/12/2023 Physical exam 03/27/2023 Assessment & Plan (03/27/2023 9:23 AM EST): Patient physical examination was unremarkable, no thyroid nodules were palpated, no heart murmurs, no chest pain/shotness of breath Gastroesophageal reflux disease without esophagi tis 03/27/2023 Assessment & Plan (03/27/2023 9:31 AM EST): Controlled with lifestyle modifications and famotidine, no changes will be made Mood disorder 08/03/2022 Assessment & Plan (03/27/2023 9:28 AM EST): Stable, no suicidal/homicidal ideas reported Assessment & Plan (08/03/2022 5:37 PM EDT): Patient refer that for the past 4 years she has been receiving VNA services, refers that lately has been having issues because they can come at any time during the day, she I requesting to be taken off serivces, but due to her mental illness I told her I would prefer to leave her on the current services. She would feel that if they can come at a specific time of the day and not random, it would be more beneficial, will ask if company can visit her at a predetermined time. Mild intermittent asthma without complication Assessment & Plan (03/27/2023 9:31 AM EST): Controlled after smoking cessation, no changes will be made Assessment & Plan (04/28/2022 10:38 AM EST): On albuterol as needed, refers using it less than 1 a month, reinforced importance of smoking cessation, no changes will be made Cervical intraepithelial neoplasia grade 2 08/16 Overview (07/12/2023): colpo done 08/17/11. will refer for tx options Resolved Problems Problem Noted Date Diagnosed Date Resolved Date Severe obesity (BMI 35.0-39. 9) with comorbidity (CMS/HCC) 02/14/2024 05/20/2024 Smoker 04/26/2022 12/12/2023 Assessment & Plan (03/27/2023 9:30 AM EST): Patient stopped smoking almost 6 months ago, congratulated her. Assessment & Plan (04/28/2022 10:38 AM EST): Patient currrently smoking 1 pack a day, will order 21 mg nicotine patch Encounters Date Type Department Care Team Description 01/17/2025 Telephone [facility] MEDICINE [address] [place] [phone] Flower Geller NP 01/16/2025 Telephone [facility] MEDICINE [address] [place] [address] Daniel Gutierrez MD ER Follow-up 12/05/2024 Orders Only [facility] MED & PEDS [address] [place] [address] Daniel Gutierrez MD 11/20/[address] [address] Daniel Gutierrez MD Med Refill 11/10/2024 8:45 AM EDT Telemedicine [facility]S [address] [place] [address] Daniel Gutierrez MD Class 2 obesity (Primary Dx); Mixed stress and urge urinary incontinence 11/10/2024 Travel from Last 3 Months Immunizations Immunization Administration Dates Next Due HPV, Quadrivalent 02/22/2017,09/08/2011,07/11/19 12 Influenza injectable quadriv alent preservative free 03/27/2023,02/22/2021,01/14/2019,2018,01/04/2018,01/15/2017 Tdap 03/27/2023 Social History Tobacco Use Types Packs/Day Years [...] Orientation Straight 02/13/2022 10 :17 AM EDT Last Filed Vital Signs Vital Sign Reading Time Taken Comments Blood Pressure 118/70 05/20/2024 10:11 AM EST Pulse 88 05/20/2024 10:11 AM EST Temperature 37.1 C (98.7 F) 05/20/2024 10:11 AM EST Respiratory Rate 20 05/20/2024 10:11 AM EST Oxygen Saturation 97% 12/12/2023 9:24 AM EDT Inhaled Oxygen Concentration - - Weight 89.8 kg (198 lb) 08/15/2024 9:13 AM EDT Height 163.8 cm (5' 4.5 ) 05/20/2024 10:11 AM ES T Body Mass Index 33.46 05/20/2024 10:11 AM EST Plan of Treatment Upcoming Encounters Date Type Department Care Team (Late st Contact Info) Description 01/19/2025 9:15 AM EDT Office Visit [facility] MED & PEDS [address] [place] [address] Agustina Pérez MD [address] [place] [address] Health Maintenance Due Date Last Done Comments Disability Screening 1987 Alcohol/Substance Use Screening 1999 Family Planning (PISQ) 2002 Hepatitis B Vaccines (1 of 3 - 19+ 3-dose series) 2006 Pneumococcal Vaccine: Pediatrics (0 to 5 Years) and At-Risk Patients (6 to 49) Years (1 of 2 - PCV) 2006 SDOH Screening 03/20/2024 03/20/2023 Depression Screening 03/27/2024 03/27/2023, 03/27/20 23 Tobacco Screening 12/11/2024 12/12/2023 COVID-19 Vaccine ( season) 2024 10/11/2020, 09/17/2020 Influenza Vaccine (#1) 2024 , 02/22/2021, 01/14/2019, Additional history exists Cervical Cancer Screening 02/22/2026 HPV/Cotest 02/22/2026 02/22/2021 Pap Smear 02/22/2026 02/22/2021 Lipid Panel 03/27/2028 03/27/2023, 01/05/2022 DTaP/Tdap/Td Vaccines (2 - Td or Tdap) 03/27/2033 03/27/2023 Zoster Vaccines (1 of 2) 2037 RSV Patients and Patients Aged 60 years or older (1 - 1-dose 75+ series) 2062 HPV Vaccines Completed 02/22/2017, 08/15, 07/11/2011 HIV Screening Completed 07/12/2023 Hepatitis C Screening Completed 07/12/2023, 023 HIB Vaccines Aged Out No longer eligi ble based on patient's age to complete this topic Hepatitis A Vaccines Aged Out No long er eligible based on patient's age to complete this topic IPV Vaccines Aged Out No longer eligi ble based on patient's age to complete this topic Meningococcal B Vaccine Aged Out No l onger eligible based on patient's age to complete this topic Meningococcal Vaccine Aged Out No candice ekaterina eligible based on patient's age to complete this topic RSV under 20 months Aged Out No longe r eligible based on patient's age to complete this topic Rotavirus Vaccines Aged Out No longer eligible based on patient's age to complete this topic Procedures Procedure Name Priority Date/Time Associated Diagnosis Comments URINALYSIS WITH REFLEX MICROSCOPIC Routine 01/18/2025 9:58 AM EDT CBC WITH AUTO DIFFERENTIAL Routine 01/18/2025 9:58 AM EDT HEPATITIS C AB W/REFL TO HCV RNA, QN, PCR Routine 07/12/2023 2:07 PM EDT Dysuria HIV 1/2 ANTIGEN/ANTIBODY, FOURTH GENERATION W/RFL Routine 07/12/2023 2:07 PM EDT Dysuria LIPID PANEL, STANDARD Routine 03/27/2023 9:48 AM EST Physical exam THINPREP IMAGING PAP AND HPV MRNA E6/E7 WITH REFLEX TO HPV 16,18/45 Routine 02/22/2021 9:30 AM EST from Last 3 Months or Most Recently Relevant to Health Maintenance Results * (ABNORMAL) CBC auto differential (01/18/2025 9:58 AM EDT) White Blood Count 6.8 4.8 - 10.8 X10*3/uL [facility] Red Blood Count 4.35 4.20 - 5.50 X10*6/uL [facility] Hemoglobin 12.9 12.0 - 16.0 g/dl [facility] Hematocrit 36.4(L) 37.0 - 47.0 % [facility] Mean Corpuscular Volume 83.7 80.0 - 98.0 fL [facility] Mean Corpuscular Hemoglobin 29.7 27.0 - 33.0 pg [facility] Mean Corpuscular HGB Conc 35.4(H) 31.0 - 35.0 g/dl [facility] Red Cell Distribution Width 13.5 11.0 - 16.0 % [facility] Platelet Count 339 160 - 400 X10*3/uL [facility] Mean Platelet Volume 9.4 9.4 - 12.3 fL [facility] Neutrophils Percent Auto 69.7 45 - 73 % [facility] Imm Gran Pct Auto 0.1 0.0 - 0.4 % [facility] Lymphocytes Percent Auto 23.3 20 - 40 % [facility] Monocytes Percent Auto 6.6 2 - 11 % [facility] Eosinophils Percent Auto 0.0 0 - 4 % [facility] Basophils Percent Auto 0.3 0 - 2 % [facility] NRBC Pct Auto 0.0 0.0 - 0.2 /100WBC [facility] Neutrophils Absolute Auto 4.8 2.0 - 8.3 x10*3/uL [facility] Imm Gran Abs Auto 0.01 0.00 - 0.03 X10*3/uL [facility] Lymphocytes Absolute Auto 1.6 1.2 - 4.9 X10*3/uL [facility] Monocytes Absolute Auto 0.5 0.1 - 1.2 X10*3/uL [facility] Eosinophils Absolute Auto 0.0 0.0 - 0.4 X10*3/uL [facility] Basophils Absolute Auto 0.0 0.0 - 0.2 X10*3/uL [facility] NRBC Abs Auto 0.000 0.0 - 0.012 X10*3/uL [facility] 01/18/2025 9:58 AM EDT 01/18/2025 10:04 AM EDT us Generic External Data Provider LAB BLOOD ORDERAB LES Final Result [facility] [address] [place], [place] [phone] * Urinalysis w/reflex microscopic (01/18/2025 9:58 AM EDT) Color Urine Yellow [facility] Appearance Urine Clear [facility] PH 5.5 5.0 - 9.0 [facility] Glucose Urine UA Negative Negative mg/dL [facility] Urine Blood Negative Negative [facility] Specific Alum [place] - Urine 1.020 1.005 - 1.025 [facility] Urine Protein Negative Neg-Trace mg/dL [facility] Urine Ketones Negative Negative mg/dL [facility] Nitrite Urine Negative Negative [facility] Leukocyte Esterase Urine Negative Negative [facility] 01/18/2025 9:58 AM EDT 01/18/2025 10:04 AM EDT Narrative [facility] - 01/18/2025 10:09 AM EDT [id number], Clean Catch us Generic External Data Provider LAB URINE ORDERAB LES Final Result Performing Organization Address [facility]/ZIP Co de Phone Number [facility] [address] [place] [phone] * Hepatitis C Antibody with Reflex to HCV, RNA, Quantitative, Real-Time PCR (07/12/2023 2:07 PM EDT) Hepatitis C Antibody Nonreactive Nonreactive [facility] Comment:Antibodies to HCV no t detected; does not exclude early acuteHCV infection. Blood Venous blood specimen / Unknown 07/12/2023 2:07 PM EDT 07/12/2023 4:12 PM EDT us Laisha Arauz MD LAB BLOOD ORDERABLES Final Res ult Performing Organization Address [facility]/ZIP Co de Phone Number [facility] [address] [place] [address] [phone] * HIV-1/2 Antigen and Antibodies, Fourth Generation, with Reflexes (07/12/2023 2:07 PM EDT) HIV AB/AG Nonreactive Nonreactive [facility] Comment:HIV-1 p24 Ag and/or HIV-1/HIV-2 Ab not detected.A test result that is nonreactive does not exclude thepossibility of exposure to or infection with HIV-1 and/orHIV-2. Nonreactive results in this assay for individualswith prior exposure to HIV-1 and/or HIV-2 may be due toantigen and antibody levels that are below the limit ofdetection of this assay.The [employer] HIV Ag/Ab Combo assay result andsupplemental assay results should be interpreted inconjunction with the patient's clinical presentation,history and other laboratory results. If the results areinconsistent with clinical evidence, additional testing issuggested to confirm the result. Blood Venous blood specimen / Unknown 07/12/2023 2:07 PM EDT 07/12/2023 4:12 PM EDT us Laisha Arauz MD LAB BLOOD ORDERABLES Final Res ult [facility] [address] [place] [address] [phone] * (ABNORMAL) Lipid Panel, Standard (03/27/2023 9:48 AM EST) Triglycerides 196(H) <150 mg/dL [facility] Comment:Desirable Triglyceri de: less than 150 mg/dLBorderline High Triglyceride 150-199 mg/dLHigh Triglyceride: 200-499 mg/dLVery High Triglyceride: greater than or equal to 5OO mg/dL Cholesterol 183 <200 mg/dL [facility] Comment:Desirable Cholestero l: less than 200 mg/dLBorderline High Cholesterol: 200-239 mg/dLHigh Cholesterol: greater than 239 mg/dL LDL Cholesterol Calculated 103(H) <100 mg/dL [facility] Comment:Desirable LDL: less than 100 mg/dLNear Optimal/Above Optimal LDL: 110- 129 mg/dLBorderline High LDL: 130-159 mg/dLHigh LDL: 160-189 mg/dLVery High LDL: greater than or equal to 190 mg/dL HDL Cholesterol 41 >40 mg/dL [facility] Comment:Desirable HDL: great er than 40 mg/dL Note: This HDL assay may give artificially low results in patients with liver disease. Blood Venous blood specimen / Unknown 03/27/2023 9:48 AM EST 03/27/2023 2:40 PM EST us Daniel Persaud MD LAB BLOOD ORDERABL ES Final Result [facility] [address] [place] [phone] * THINPREP TIS PAP AND HPV mRNA E6/E7 REFLEX HPV 16,18/45 (02/22/2021 9:30 AM EST) Clinical Information: None given [facility] COMMENT SEE COMMENT [facility] Comment: EXPLANATORY NOTE: The Pap is a screening test for cervical cancer. It is not a diagnostic test and is subject to false negative and false positive results. It is most reliable when a satisfactory sample, regularly obtained, is submitted with relevant clinical findings and history, and when the Pap result is evaluated along with historic and current clinical information. COMMENT: This Pap test has been evaluated with computer assisted technology. [facility] Buffing Wheel Former Automatic: SEE COMMENT [facility] Comment: CXP, CT(ASCP) CT screening location: [place] [address] HPV nRNA E6/E7 Not Detected Not Detected [facility] Comment: Methodology: Milieu Coordinator-Mediated Amplification This assay detects E6/E7 viral messenger RNA (mRNA) from 14 high-risk HPV types (16,18,31,33,35,39,45,51,52,56,58,59,66,68). The analytical performance characteristics of this assay have been determined by [employer]. The modifications have not been cleared or approved by the FDA. This assay has been validated pursuant to the CLIA regulations and is used for clinical purposes. For additional information, please refer to http://education.[employer].Digg/faq/USH160l4 (This link if provided for information/ educational purposes only.) Infection Shift in vaginal jeane suggestive of bacterial vaginosis. [facility] Interpretation/Re sult: Negative for intraepithelial lesion or malignancy. [facility] LMP: 02/16/21 [facility] Prev. BX: NONE GIVEN [facility] Prev. PAP: NONE GIVEN [facility] SOURCE: None given [facility] Statement Of Adequacy: SEE COMMENT [facility] Comment: Satisfactory for evaluation. Endocervical/transformation zone component present. 02/22/2021 9:3 0 AM EST us Ladan Jewels CN LAB PATHOLOGY ORDERABLES Final Result [facility] [address] from Last 3 Months or Most Recently Relevant to Health Maintenance Insurance [facility] < [address] [phone] Care Teams Vulcanized Fiber Unit Operator Relationship Specialty Start Date End Date Daniel Gutierrez MD [address] [facility] [place] [address] PCP - General Internal Medicine 08/28/19 [facility] 08/28/19
--- OUTSIDE RECORDS SUMMARY | 2025-01-18 10:21 | XMS_ITS ---
Author Name [facility] Organization Unknown Encounters Encounter Type Encounter Reason Primary Diagnosis Location Date Ambulatory TBE Generalized abdo alexy pain [facility]) 01/18/2025 Care Team Organization Name Specialty Phone Email Start Date End Da [facility] 01/18/2025
--- OUTSIDE RECORDS SUMMARY | 2025-01-18 10:21 | XMS_ITS | Encounter Summary ---
Author Organization [employer] Address [address] [facility] 7 [place] [address] Care Team Providers Care Customer Service Cashier Name Role Phone Daniel Gutierrez MD Primary Care Prov ider Reason for Visit * Reason Onset Date Comments ER Follow-up 01/16/2025 Encounter Details Date Type Department Care Team ([facility] st Contact Info) Description 01/16/2025 Telephone [facility] MEDICINE [address] [place] [address] Daniel Gutierrez MD [address] [place] [address] ER Follow-up Social History Tobacco Use Types Packs/Day Years [...] encounter Miscellaneous Notes * Telephone Encounter - Elsi Mak RN - 01/16/2025 12:52 PM EDT called pt to triage, spoke to pt. pt states seen ER at [facility] for 3 days duration of left sided abdominal pain from left breast area down to the umbilicus. pt states was not told a diagnosis, but all her testing and scans were normal. nothing acute found in the ER. pt denies current severe pain, vomiting, diarrhea, or other associated symptoms. pt states intermittent nausea and dizziness as well. given ER follow up with [facility] provider at 9:15 for exam, follow up and any referrals needed. advised home care: rest, fluids, light diet, follow ER discharge instructions, and call back if worsening or new concerns. pt understands and agrees with plan. insurance verified. Protocol Used: Abdominal Pain - Female (Adult) Protocol-Based Disposition: Seen in ER today, and needs ER follow up. Video visit not offered Positive Triage Question: * Patient wants to be seen * All higher-acuity triage questions were negative Care Advice Discussed: * Rest * Drink Clear Fluids * Diet * Pass a Stool * Avoid Aspirin and NSAIDs * Reasons To Call Back - You become worse * Telephone Encounter - Kassidy Bharat Mcelroy - 01/16/2025 12:22 PM EDT Patient calling to report ED visit on : Date: 01/16 Hospital: [facility] Seen for: Abdominal pain Symptomatic Yes *if yes message should go to Triage Patient advised will forward to team nurse for follow up Contact pt at [phone] * Telephone Encounter - Ricardo Dwyer - 01/16/2025 11:33 AM EDT Tc from pt called In to inform she is currently in the ER and would like to schedule follow appointment, appeals writer advised to call back once they're officially discharged. documented in this encounter Plan of Treatment Upcoming Encounters Date Type Department Care Team ([facility] st Contact Info) Description 01/19/2025 9:15 AM EDT Office Visit [facility] MED & PEDS [address] [place] [address] Agustina Pérez MD [address] [place] [address] documented as of this encounter Visit Diagnoses Not on filedocumented in this encounter Additional Health Concerns Assessment Noted Time PHQ-9 Depression Total Score: 0 03/27/20 23 8:55 AM EST documented as of this encounter Care Teams Customer Service Cashier Relationship Specialty Start Date End Date Daniel Gutierrez MD [address] [place] [address] PCP - General Internal Medicine 08/28/19 [facility] 08/28/19 documented as of this encounter
--- OUTSIDE RECORDS SUMMARY | 2025-01-18 10:21 | XMS_ITS | Clinical Summary ---
Author Organization [address] [facility] Address [address] [place] [address] Phone Care Team Providers Care Die Set Up Worker Name Role Phone Unavailable Primary Care Provider Unavailabl e Social History Tobacco Use Types Packs/Day Years Used Date Smoking Tobacco: Never Assessed Comments Unknown Sex and Gender Information Value Date Recorded Sex Assigned at Not on file Legal Sex Female 1:09 PM EST Gender Identity Not on file Sexual Orientation Not on file Plan of Treatment Upcoming Encounters Date Type Department Care Team ([facility] st Contact Info) Description 02/10/2025 11:00 AM EDT Office Visit Urogynecology [address] [phone] Loretta Alvarez MD [address] [phone] Health Maintenance Due Date Last Done Comments DTaP,Tdap,and Td Vaccines (1 - Tdap) 2006 Hepatitis B Vaccines (1 of 3 - 19+ 3-dose series) 2006 Cervical Cancer Screening: P ap Smear 2008 HPV Vaccines (1 - 3-dose SCD M series) 2014 Depression Screening 04/16/2024 HIV Screening 10/28/2024 Hepatitis C Screening 10/28/2024 Social Influencers of Health Screening 10/28/2024 COVID-19 Vaccine ( - 2023-2 5 season) 2024 Influenza Vaccine (#1) 2024 RSV Immunization Adult Patie nts (1 - 1-dose 75+ series) 2062 HIB Vaccines Aged Out No longer eligi ble based on patient's age to complete this topic Hepatitis A Vaccines Aged Out No long er eligible based on patient's age to complete this topic IPV Vaccines Aged Out No longer eligi ble based on patient's age to complete this topic MMR Vaccines Aged Out No longer eligi ble based on patient's age to complete this topic Meningococcal ACWY Vaccine Aged Out N o longer eligible based on patient's age to complete this topic Meningococcal B Vaccine Aged Out No l onger eligible based on patient's age to complete this topic Pneumococcal Vaccine: Pediat rics (0 to 5 Years) and At-Risk Patients (6 to 49 Years) Aged Out No longer eligible b ased on patient's age to complete this topic RSV Immunization Patients Un pancho 20 months Aged Out No longer eligible b ased on patient's age to complete this topic Varicella Vaccines Aged Out No longer eligible based on patient's age to complete this topic Insurance [facility] Member Subscriber Plan / Payer (Ef fective 2014-Present) Name:BERE OLSEN Relation to Subscriber:Self Name:Bere Olsen Payer ID:[id number] Group ID:[id number] Type:Not on file Address: [facility] [address] [phone]
[2025-01-18 10:24] LABS: Alanine Aminotransferase 26 U/L (0-31); Albumin Level 4.7 g/dL (3.5-5.0); Alkaline Phosphatase 66 U/L (39-117); Anion Gap 12 (12-20); Aspartate Amino Transferase 24 U/L (5-31); Blood Urea Nitrogen 7 mg/dL (9-16); Calcium 9.3 mg/dL (8.4-10.2); Carbon Dioxide 20 mmol/L (22-29); Chloride 110 mmol/L (96-108); Creatinine Clr Calc Pharmacy 132.6; Estimated Glomerular Filt Rate > 60; Potassium 4.1 mmol/L (3.3-5.1); Sodium 138 mmol/L (135-145); Total Protein 7.3 g/dL (6.5-8.0)
--- NOTE | 2025-01-18 10:48 | ED.ABDPAIN ---
HPI - Abdominal Pain General Chief Complaint: Abdominal Pain Stated Complaint: Severe Abd pain, nausea Time Seen by Provider: 01/18/25 10:43 History of Present Illness ED Provider: SREEKANTH Murphy HPI narrative: 39-year-old female with medical history of IBS with diarrhea, asthma, mood disorder presents to the ED for 4 days of constant left upper quadrant/epigastric abdominal pain without radiation, nausea, and dizziness when moving positions. Patient states she was seen at [facility] yesterday and had a CT abdomen and pelvis done which she states was normal and was discharged home. Patient states last BM was yesterday and was medium in size and looked normal to her. LMP was 01/12 and has history of tubal ligation. Patient states she was unable to sleep last night due to pain which prompted her to seek care. Denies fever, chills, vomiting, chest pain, SOB, difficulty breathing, black/tarry stool, urinary symptoms. Related Data Home Medications ?Medication ?Instructions ?Recorded ?Confirmed clonidine HCl 0.1 mg tablet 0.1 mg PO BID 04/19/21 nicotine 21 mg/24 hr daily 1 patch topical DAILY 04/19/21 transdermal patch olanzapine 20 mg tablet 20 mg PO BEDTIME 04/19/21 sodium chloride 0.65 % nasal spray spray intranasal 04/19/21 aerosol (Saline Nasal) trazodone 100 mg tablet 200 mg PO BEDTIME PRN 04/19/21 Previous Rx's ?Medication ?Instructions ?Recorded magnesium citrate 150 ml PO DAILY #296 mL 01/18/25 simethicone 125 mg capsule 125 mg PO DAILY #5 caps 01/18/25 Allergies Allergy/AdvReac Type Severity Reaction Status Date / Time No Known Allergies Allergy Verified 01/18/25 09:46 Review of Systems Review of Systems CONST: Negative for fever, body aches and chills. HENT: Negative for neck pain/stiffness, headache, congestion, sore throat, swelling. EYES: Negative for discharge/pain or vision changes. RESP: Negative for cough/hemoptysis and shortness of breath. CV: Negative chest pain, difficulty breathing, palpitations. ABD: Negative vomiting. POS LUQ, epigastric pain, nausea : Negative increase frequency, dysuria, blood in urine or stool. MUSC: Negative for muscle aches, edema. SKIN: Negative rash, lesions/sores. NEURO: Negative headache, dizziness, weakness. Yes all other systems are reviewed and are negative [facility] Past Medical History Attestation statement: The following information was validated with the patient. Source: old records reviewed and nursing notes reviewed Surgical History History of tubal ligation Social History Social History Smoked in Last 30 Days: No Use of substances other than those prescribed or required for medical reasons: No Advance Directives: No Advance Directives Information Provided: Yes Do you have a plan to hurt others: No Plan Patient : No ( operation ) Physical Exam ED Vital Signs: Vital Signs - 24 hr 01/18/25 09:44 01/18/25 10:13 01/18/25 11:32 Temperature 97.3 F 97.8 F Pulse Rate 87 71 Respiratory Rate 18 16 20 Blood Pressure 118/65 114/73 Pulse Oximetry 98 98 Oxygen Delivery Method Room Air Room Air 01/18/25 14:05 01/18/25 14:07 Temperature 98.1 F 98.1 F Pulse Rate 76 76 Respiratory Rate 20 20 Blood Pressure 110/61 110/61 Pulse Oximetry 97 Oxygen Delivery Method Room Air BMI result Body Mass Index 32.9 GENERAL APPEARANCE: ?AxOx4, generally well-appearing, no acute distress. HEENT: ?NC, AT. MMM. EOMI, clear conjunctiva, oropharynx clear. NECK: ?Supple without lymphadenopathy.? No stiffness or restricted ROM. HEART:? Normal rate and regular rhythm, normal S1/S2, no m/r/g LUNGS:? CTAB, moving air well. No crackles or wheezes are heard. ABDOMEN: ?Soft, nondistended, no guarding, no rigidity, negative Soto's sign, no rebound tenderness, TTP of diffuse abdomen, no overlying skin changes BACK: No CVAT, no obvious deformity. EXTREMITIES: ?Without cyanosis, clubbing or edema. NEUROLOGICAL: ?Grossly nonfocal. Alert and oriented, moving all 4 extremities. Observed to ambulate with normal gait. Skin: ?Warm and dry without any rash. Medical Decision Making Medical Decision Making MDM Narrative: 39-year-old female with medical history of IBS with diarrhea, asthma, mood disorder presents to the ED for 4 days of constant left upper quadrant/epigastric abdominal pain without radiation, nausea, and dizziness when moving positions. Was evaluated with CT abdomen/pelvis at [facility] and sent home to follow up with PCP. Woke up this morning with persistent abdominal pain. Last bowel movement was this morning where she had a medium sized bowel movement that looked normal for her, she is passing flatus. I obtained official radiologist reading from CT abdomen/pelvis that was taken yesterday which revealed: Borderline distention of stool field transverse colon measuring up to 6 cm, trace left pleural effusion, mild stranding and thin soft tissue density in the anterior subcutaneous fat of the lower abdominal and pelvis most likely due to postsurgical change. Labs today without leukocytosis/leukopenia, H&H stable, no electrolyte abnormality, lipase WNL at 21, beta hCG quant negative. Urinalysis negative for blood or infection. Viral serology EKG reveals sinus bradycardia with sinus arrhythmia, no ST-elevation/depression, T-wave abnormality, initial troponin undetectable at< 2.7, no chest pain- less likely ACS Due to stool burden seen on CT scan, will evaluate with KUB to observe for changes in stool burden. No indication for repeat CT scan today as patient is afebrile, without tachycardia, no leukocytosis/leukopenia, negative soto's sign, no rebound tenderness with mild diffuse abdominal tenderness. Patient was medicated with IV fluids, 10 mg IV metoclopramide, 25 mg IV Benadryl, 4 mg morphine, 15 mL Maalox, 15 mL viscous lidocaine which has relieved dizziness and nausea, with mild effect on abdominal pain. XR KUB reveals moderate fecal retention within the proximal colon, no bowel dilation, no evidence of obstructive process. Patient will be discharged home with prescription for simethicone, magnesium citrate to aid in having a bowel movement. I counseled patient to follow up with her primary care doctor, and on strict return precautions. Patient is in agreement with the plan. Differential Diagnosis Differential Diagnoses: The differential diagnosis associated with the presentation includes Gastritis Peptic ulcer disease Constipation Vertigo Admission/Observation Consideration of admission/observation: Escalation of care including admission/observation considered Lab Data MDM Lab Attestation statement: I reviewed the patient's lab results. 01/18/25 09:58 01/18/25 09:58 Labs: Lab Results 10/05/25 10/05/25 10/05/25 Range/Units 09:58 11:45 13:47 WBC 6.8 (4.8-10.8) X10*3/uL RBC 4.35 (4.20-5.50) X10*6/uL Hgb 12.9 (12.0-16.0) g/dl Hct 36.4 L (37.0-47.0) % MCV 83.7 (80.0-98.0) fL MCH 29.7 (27.0-33.0) pg MCHC 35.4 H (31.0-35.0) g/dl RDW 13.5 (11.0-16.0) % Plt Count 339 (160-400) X10*3/uL MPV 9.4 (9.4-12.3) fL Immature Gran % (Auto) 0.1 (0.0-0.4) % Neut % (Auto) 69.7 (45-73) % Lymph % (Auto) 23.3 (20-40) % [place] % (Auto) 6.6 (2-11) % Eos % (Auto) 0.0 (0-4) % Baso % (Auto) 0.3 (0-2) % Lymph # (Auto) 1.6 (1.2-4.9) X10*3/uL [place] # (Auto) 0.5 (0.1-1.2) X10*3/uL Eos # (Auto) 0.0 (0.0-0.4) X10*3/uL Baso # (Auto) 0.0 (0.0-0.2) X10*3/uL Abs Immat Gran (auto) 0.01 (0.00-0.03) X10*3/uL Absolute Neuts (auto) 4.8 (2.0-8.3) x10*3/uL Absolute Nucleated RBC 0.000 (0.0-0.012) X10*3/uL Nucleated RBC % (auto) 0.0 (0.0-0.2) /100WBC Sodium 138 (135-145) mmol/L Potassium 4.1 (3.3-5.1) mmol/L Chloride 110 H (96-108) mmol/L Carbon Dioxide 20 L (22-29) mmol/L Anion Gap 12 (12-20) BUN 7 L (9-16) mg/dL Creatinine 0.62 (0.5-1.4) mg/dL Estim Creat Clear Calc 132.6 Estimated GFR > 60 Random Glucose 91 (60-115) mg/dL Calcium 9.3 D (8.4-10.2) mg/dL Total Bilirubin 0.3 (0.0-1.0) mg/dL AST 24 (5-31) U/L ALT 26 (0-31) U/L Alkaline Phosphatase 66 (39-117) U/L Troponin I High Sens < 2.7 (<3.5-17.0) ng/L Total Protein 7.3 (6.5-8.0) g/dL Albumin 4.7 (3.5-5.0) g/dL Lipase 21 (8-78) U/L Beta HCG, Quant < 2 mIU/mL Urine Color Yellow Urine Appearance Clear Urine pH 5.5 (5.0-9.0) Ur Specific [place] 1.020 (1.005-1.025) Urine Protein Negative (Neg-Trace) mg/dL Urine Glucose (UA) Negative (Negative) mg/dL Urine Ketones Negative (Negative) mg/dL Urine Blood Negative (Negative) Urine Nitrite Negative (Negative) Ur Leukocyte Esterase Negative (Negative) COVID-19 (JAKUB) Negative (Negative) COVID-19 Clin Com See Note Influenza Type A (GEORGINA) Negative (Negative) Influenza Type B (GEORGINA) Negative (Negative) Influenza A & B Note See Note Independent Interpretation I performed an independent interpretation of an: EKG and Plain X-Ray Interpretation: I independently interpreted the EKG which reveals sinus bradycardia with sinus arrhythmia no significant ST-elevation/depression, T-wave abnormality, lengthened QT Vent. Rate : 59 BPM Atrial Rate : 59 BPM P-R Int : 170 ms QRS Dur : 80 ms QT Int : 400 ms P-R-T Axes : 27 44 22 degrees QTcB Int : 396 ms Sinus bradycardia with sinus arrhythmia Otherwise normal ECG When compared with ECG of 27-Jun-2004 13:24, No significant change was found I personally interpreted the XR KUB which revealed a moderate stool burden without obstructive pattern, I agree with the radiologist's interpretation Radiology Impression Discussion of test interpretation with radiology: I have reviewed the radiologist's reading. Radiologist Impression: XR KUB Findings: No pneumoperitoneum or pneumatosis. Moderate fecal retention within the proximal colon. No bowel dilatation. No abnormal calcifications. No acute fractures. IMPRESSION: Nonspecific bowel gas pattern without evidence of an obstructive process. This document has been electronically signed by: Chaparrita Pizano MD on 01/18/2025 16:12:32 Dictated By: Chaparrita Pizano MD Signed By: <Electronically signed by Chaparrita Pizano MD in OV> 01/18/25 1613 External Record Review External record reviewed: Inpatient record, Office record and Outpatient record Chronic Conditions Patient?s care impacted by: Other (IBS with diarrhea, asthma, mood disorder) Medications Administered Discontinued Medications Generic Name Dose Route Start Last Admin Trade Name Freq PRN Reason Stop Dose Admin Al Hydroxide/Mg Hydroxide 15 ml 01/18/25 12:24 01/18/25 13:04 Magnesium Hydrox/Alum Hydrox 30 Ml Oral.Susp PO 01/18/25 12:25 15 ml ONCE ONE Administration Diphenhydramine HCl 25 mg 01/18/25 10:59 01/18/25 11:34 Diphenhydramine Hcl 50 Mg/Ml Vial IVPUSH 01/18/25 11:00 25 mg ONCE ONE Administration Lactated Ringer's 1,000 mls @ 999 mls/hr 01/18/25 10:59 01/18/25 12:00 Lr IV 01/18/25 11:59 Infused .Q1H1M ONE Infusion Lidocaine HCl 15 ml 01/18/25 12:24 01/18/25 13:04 Lidocaine Hcl Viscous 2 % 15 Ml Solution MUCOUS MEM 01/18/25 12:25 15 ml ONCE ONE Administration Metoclopramide HCl 10 mg 01/18/25 10:59 01/18/25 11:34 Metoclopramide Hcl 10 Mg/2 Ml Vial IVPUSH 01/18/25 11:00 10 mg ONCE ONE Administration Morphine Sulfate 4 mg 01/18/25 10:59 01/18/25 11:32 Morphine Sulfate 4 Mg/Ml Cartridge IVPUSH 01/18/25 11:00 4 mg ONCE ONE Administration Protocol Discharge Plan Discharge Clinical Impression: Constipation Patient Disposition: Home, Self-Care Instructions: Constipation (ED) Additional Instructions: You were evaluated in the ED due to abdominal pain, nausea and dizziness. Your lab work was reassuring as you did not have a significant elevation or decrease in your white blood cell count, they were normal today, no evidence of anemia, no electrolyte abnormality. Your EKG revealed a non-emergent slow heart rate of 56 beats per minute. Your troponin which is an enzyme that the heart gives off when damage or stressed was undetectable at < 2.7 today. Your X ray did reveal moderate amount of stool within the colon. You are being prescribed simethicone which is a medication that helps abdominal pressure from gas and magnesium citrate which is a saline laxative that will help you have a bowel movement. Please return to the ED if you experience fevers over 100.4?, worsening abdominal pain, inability to move your bowels, inability to pass gas, or any new/worsening/concerning symptoms. Prescriptions: New simethicone 125 mg capsule 125 mg PO DAILY Qty: 5 0RF magnesium citrate Solution 150 ml PO DAILY Qty: 296 0RF Rx Instructions: Drink half of the bottle within 1 hour, if no bowel movement within 6 hours repeat. No Action nicotine 21 mg/24 hr patch 24 hour 1 patch topical DAILY sodium chloride [Saline Nasal] 0.65 % aerosol,spray intranasal clonidine HCl 0.1 mg tablet 0.1 mg PO BID trazodone 100 mg tablet 200 mg PO BEDTIME PRN olanzapine 20 mg tablet 20 mg PO BEDTIME Print Language: Slovenian
--- NOTE | 2025-01-18 11:02 | ECG_ITS ---
Test Reason : EPIGASTRIC PAIN Blood Pressure : */* mmHG Vent. Rate : 59 BPM Atrial Rate : 59 BPM P-R Int : 170 ms QRS Dur : 80 ms QT Int : 400 ms P-R-T Axes : 27 44 22 degrees QTcB Int : 396 ms Sinus bradycardia with sinus arrhythmia Otherwise normal ECG When compared with ECG of 27-Jun-2004 13:24, No significant change was found Referred By: Humera Murphy Electronically Signed By: MACY BEJARANO MD
[2025-01-18 11:10] LABS: Lipase 21 U/L (8-78)
[2025-01-18] MEDS: Lactated Ringers 1,000 ML 999 ML IV (11:33)
[2025-01-18 12:36] LABS: Troponin-I High Sensitivity < 2.7 ng/L (<3.5-17.0)
[2025-01-18] MEDS: Lidocaine HCl Viscous 2 % 15 ML SOLUTION MUCOUS MEM (13:04)
[2025-01-18] MEDS: Magnesium Hydrox/Alum Hydrox 30 ML ORAL.SUSP 15 ML PO (13:04)
[2025-01-18 14:09] LABS: COVID-19 Test Negative (Negative); IDNOW Serial# 08D9AD1C; IDNOW Serial# 58CA691E; Influenza B2 Negative (Negative)
== END 2025-01-18 17:19 | disposition home or self-care (01) ==
PROVIDERS: Emergency Provider Emergency Medicine; PCP Internal Medicine
DX: K59.00 Constipation, unspecified (principal); R11.0 Nausea; R10.12 Left upper quadrant pain; R00.1 Bradycardia, unspecified; I49.8 Other specified cardiac arrhythmias; Z79.899 Other long term (current) drug therapy; Z11.52 Encounter for screening for COVID-19
CPT/HCPCS: 36415; 74018; 80053; 81003; 83690; 84484; 84702; 85025; 87502; 87635; 93005; 96374; 96375; 99284; J1200; J2270; J2765; J7120

== ENCOUNTER → 2025-01-18 11:02 | Outpatient (BNV) | payer OTHER, SELFPAY | PROVIDERS: Emergency Provider Emergency Medicine; PCP Internal Medicine; Visit Provider Internal Medicine Cardiovascular Disease | DX: R00.1 Bradycardia, unspecified (principal) | CPT/HCPCS: 93010 ==

== ENCOUNTER → 2025-01-18 13:31 | Outpatient (BNV) | payer OTHER, SELFPAY | PROVIDERS: Emergency Provider Emergency Medicine; PCP Internal Medicine; Visit Provider Radiology Diagnostic Radiology | DX: R14.0 Abdominal distension (gaseous) (principal) | CPT/HCPCS: 74018 ==

== ENCOUNTER 2025-02-13 15:43 | Outpatient (REF) | payer OTHER, SELFPAY ==
--- OUTSIDE RECORDS SUMMARY | 2025-02-10 11:00 | XMS_ITS | Encounter Summary ---
Author Organization [facility] Address [id number] [place] [id number] Care Team Providers Care Radiotelephone Operator Name Role Phone Daniel Gutierrez Primary Care Provide r Reason for Visit * Reason Comments New Patient * Consultation (Routine) - Authorized Specialty Diagnoses / Procedures Referred By Nacho jones Referred To Contact Urogynecology Diagnoses TERRANCE (stress urinary incontinence, female) Daniel Gutierrez [address] [place], [place] Phone: tel: fax: Urogynecology - [address] Phone: tel: fax: Referral ID Status Reason Start Date Expiration Date Visits Requested Visits Authorized [id number] Authorized Specialty Services Required 10/28/2024 10/28/2025 1 1 Encounter Details Date Type Department Care Team (Late st Contact Info) Description 02/10/2025 11:00 AM EDT Office Visit Urogynecology [address] [phone] Loretta Alvarez MD [address] [place] [address] [address] [place] [address] TERRANCE (stress urinary incontinence, female) (Primary Dx); Urge incontinence; Urinary urgency; Urinary frequency; Prolapse of anterior vaginal wall; Nocturia Social History Tobacco Use Types Packs/Day Years Used Date Smoking Tobacco: Never Assessed Comments Unknown Sex and Gender Information Value Date Recorded Sex Assigned at Not on file Legal Sex Female 1:09 PM EST Gender Identity Not on file Sexual Orientation Not on file documented as of this encounter Last Filed Vital Signs Vital Sign Reading Time Taken Comments Blood Pressure 111/77 02/10/2025 10:44 AM EDT Pulse 81 02/10/2025 10:44 AM EDT Temperature - - Respiratory Rate - - Oxygen Saturation - - Inhaled Oxygen Concentration - - Weight 90.3 kg (199 lb) 02/10/2025 10:44 AM EDT Height 163.8 cm (5' 4.5 ) 02/10/2025 10:44 AM ED T Body Mass Index 33.63 02/10/2025 10:44 AM EDT documented in this encounter Progress Notes * Loretta Alvarez MD - 02/10/2025 11:00 AM EDT Our surgical plan: - Midurethral sling (synthetic surgical mesh to stop your leaking with laughing, coughing, sneezing) - Anterior repair (repairing the bulge under your bladder) - Possible posterior repair (repairing the bulge over your rectum) - Possible sacrospinous vaginal vault suspension (attaching the top of your vagina to a strong ligament - the sacrospinous ligament - in your your pelvis) - Cystoscopy (safety check of looking inside your bladder with a camera) Return for bladder function testing to evaluate if you will develop stress urinary incontinence (leakage of urine with laughing, coughing, sneezing), which can sometimes 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 For your overactive bladder: - Avoid bladder irritants by following a bladder diet (see bladder diet below) - Try to retrain your bladder (see training instructions below) - Limit fluid consumption to less than 64oz of fluid a day Drink when you are thirsty, but do not overdrink Drink only enough so your urine is a light yellow color Stop drinking 2 hours before you go to bed - this will help decrease your need to get up during thenight to use the bathroom TIPS FOR MANAGING CONSTIPATION Miralax 17g (1 capful) once a day This is a non-habit forming laxative, and it is safe to take for long periods of time (even years!) Try taking at night for a morning bowel movement You can safely increase or decrease Miralax to what your bowels need; sometimes, people only need 1/2 a capful to have improved bowel function, or even every other day may be enough. Docusate sodium (Colace) 100mg capsule 2 times per day This is a stool softener If you have hard stool, taking docusate sodium is like putting soap around a rock - you will still need to use other modalities to improve your stool consistency Get some exercise! If you move, your bowels move! Probiotics (Align) or Activia yogurt Some patients have a lot of success with probiotics However, they can be expensive, so if you do not have success, just stop taking probiotics! TIPS FOR MANAGING DRY MOUTH: Antidepressants, anticholinergics (like some bladder control medications), antiparkinsonians, and antihistaminic drugs slow down the salivary glands resulting in dryness of the mouth. Here are some tips to decrease dental cavities, gum disease, thirst and odor: Sip cold water frequently. Roll it in your mouth before swallowing. Keep a glassful of crushed ice next to you. Sip on it to avoid overdrinking. Bacteria love our unrinsed mouth. [place] your teeth after each meal to avoid bacterial overgrowth. If you smoke, cut down or quit smoking. Try the assortment of dry mouth products by Biotene and ACT Chew sugar-free gum or a special gum for dry mouth, Biotene . Use sugar-free hard candies or lozenges. Keep your regular dental appointments. This will save your teeth and gums. Keep your lips moist by regular use of Chapstick, lip gloss, lip-seal, or vaseline. For extremely dry mouth, use artificial saliva called Oral Balance or Optimoist . Oral Balance is like jelly. Put it on your tongue. It slowly dissolves and produces moisture.Optimoist is sprayed into the mouth. You can also try Xylimelts for drymouth, which can be found on amazon Bladder Diet For some patients with ???overactive bladder??? or other irritative or painful bladder conditions, basic changes to the diet can help to reduce symptoms. Foods and beverages that make the urine more acidic, for instance, are likely to increase urinary urgency and frequency by irritating inflamed areas of the bladder or urethra. Perhaps the most significant bladder irritants are alcohol, caffeinated beverages, and carbonated beverages. Alcoholic Beverages Tomatoes / Tomato Juice Vitamin C Coffee & Tea (even decaf) Apples Vinegar Carbonated Beverages Pineapple & Johnnie Artificial Sweeteners [place] & Apple Juice Ynes & Limes Pepper Chocolate Grapefruit & Other [place] Fruits Nectarines & Peaches Lemon Juice Cranberry Strawberries Lee / Spicy Seasonings Grapes, Peaches, Plums Cantaloupes ---- Bladder Training (Timed Voiding) What is bladder training? Bladder training is about getting rid of bad habits, learning good habits, and putting you back in control of your bladder instead of your bladder controlling you and your life. The goal of a bladder drill is for you to gradually: Increase the length of time between urinating Increase the amount of fluid your bladder can hold Diminish the sense of urgency and/or leakage you experience Your bladder may have taken many weeks, months, or years establishing its bad habits. It will take time, commitment, and patience to train your bladder into good habits. Most people notice some improvement within 2 weeks, although it may take up to 3 months or more to regain bladder control. Begin your bladder retraining program by choosing a time interval (the time between one urinary void to the next) that you can manage successfully, even if that means voiding as often as every 30 or 60 minutes. It is important, for starters, to choose a time interval that you feel will not be too challenging. No ???just in case?? visits to the bathroom between voids! Get up and go to the toilet when you wake in the morning. Then during your waking hours, you should attempt to urinate at the time interval you???ve chosen (for instance, every 60 minutes), whether or not you feel an urge at that moment. It is important that you try to void at that exact interval, whether you feel you need to go or not. This will train your bladder to void ???by the clock??? Try your best to ignore all other impulses to void, if they occur between the specified times. In order to ignore those impulses, you should use urge suppression techniques to mentally distract yourself by removing your thoughts from your bladder (for instance, try counting backwards from 100, by 3???s or 7???s), and physically suppress the urge by performing your strongest pelvic floor contraction (Kegel exercise). Try tasia your pelvic muscles quickly and strongly two or three times, then wait for the urge to disappear. If you need help learning an effective Kegel exercise, please askyour doctor or nurse for instructions. Sometimes a positional change can also help, such as changing from the standing to sitting position. When you can manage a regimen like this for a week, increase the time interval by 15-30 minutes. Keep increasing the time interval, on a weekly or monthly basis, until you are voiding at intervals ofapproximately 2 to 3 ?? hours. You will be the best gear hobber set up operator of how quickly you can advance to the next step. Don???t try to advance too quickly; the process should occur ???slowly but surely over the course of several months. The schedule does not continue through the night. If nighttime urination is a problem, you should restrict fluids after dinner, generally 2 hours before you go to bed. Keeping a diary of your bladder activity is sometimes helpful to monitor your progress. A diary shows you the value of the effort you???re making Bladder drills tend to be an effective strategy in almost all patients with overactive bladder symptoms. Even if you are on another therapy such as medication, we encourage you to try this simple andrisk-free technique. WHY IS BLADDER RETRAINING THERAPY USED? It can help significantly reduce or resolve urge urinary incontinence episodes, feelings of urinaryurgency and frequent trips to the toilet. The main reason to do this is to restore normal bladder functioning. It is armando to relearning toilet training as a child. On a set timetable, you learn to suppress the feeling of bladder urgency and delay urination. Studies have shown success rates as high as approximately 80% for controlling overactive bladder symptoms when using bladder retraining therapy. HOW IS BLADDER RETRAINING THERAPY DONE? Voluntarily initiating urination and suppressing the urge to urinate reinforce the brain to bladder???communication highway?? . At first, and based on your voiding frequency, you should void ?? hourless than your usual time to urinate. For example, if you usually urinate every 1?? hours you will be instructed to urinate every 1 hour during your waking hours. The reason for this is to reestablish a connection from the brain to the bladder, ???initiate urination?? whether there is an urge present or not. You will do this scheduled voiding during waking hours only and yeny it down on a daily on a sheet of paper. Approximately every two to three weeks the interval of time to urinate will incr ease so you will now experience the urge to void. If it is not your scheduled time to urinate you will use to suppress the bladder contraction. Theseare doing a ???Kegel?? contraction (pelvic floor muscle contraction) to inhibit unwanted involuntary bladder contractions. Performing a strong quick muscle contraction can stimulate a reflex to stopthe bladder from tasia and therefore prevent urinary urgency and/or leakage. You can also usedistraction as a technique to control these symptoms, such as counting backwards from 100 by 7s (100...93...). It is important to use these techniques. Sometimes you will fail and might leak some urine. You will note this in your bladder diary. It is better to try to suppress an urge and fail then not try and run to toilet. Success with this program depends on your strength to follow the instructions as directed! This therapy lasts several months with periodic visits with the physician or nurse to assess progress, reinforce bladder inhibition techniques and reach goal attainment. HOW TO PREPARE FOR BLADDER RETRAINING. There is no preparation for a bladder retraining therapy session. It is important to be motivated to stick with the program to achieve success. It is likely to take 3 or 4 months to achieve your goalbut keep in mind it is your investment in yourself and has no side effects. documented in this encounter Plan of Treatment Upcoming Encounters Date Type Department Care Team (Late st Contact Info) Description 05/21/2025 9:00 AM EST Office Visit Urogynecology - [id number] [place] [phone] Ana Holden, ADONIS [address] [facility] [address] [place] [address] 08/11/2025 8:30 AM EDT Consult Urogynecology - [address] [phone] Loretta Alvarez MD [address] [address] 08/24/2025 Hospital Encounter [facility] Main OR [address] [place] [address] Loretta Alvarez MD [address] [address] 09/10/2025 11:00 AM EDT Office Visit Urogynecology [address] [phone] Ana Holden NP [address] [address] 10/06/2025 8:30 AM EDT Office Visit Urogynecology [address] [phone] Loretta Alvarez MD [address] [address] Scheduled Procedures Name Priority Associated Diagnoses Date/Ti me SLING SUBURETHRAL TERRANCE (stress urinary incontinence, female) Prolapse of anterior vaginal wall COLPORRHAPHY ANTERIOR POSTERIOR TERRANCE (stress urinary incontinence, female) Prolapse of anterior vaginal wall SUSPENSION VAGINAL VAULT VAGINAL TERRANCE (stress urinary incontinence, female) Prolapse of anterior vaginal wall documented as of this encounter Goals Goal Patient Goal Type Associated Problems Recent Progress Patient-Stated? Author Autogenerat ed Goal Care Plan Autogenerated Problem No Barbra Sanz MA documented as of this encounter Procedures Procedure Name Priority Date/Time Associated Diagnosis Comments POC URINE AUTO W/O MICRO Routine 02/11/2025 8:20 AM EDT Urinary urgency documented in this encounter Results * POC Urine Auto W/O Micro (02/11/2025 8:20 AM EDT) Glucose UA POC Negative Negative, Trace mg/dL Bilirubin UA POC Negative Negative Ketones UA POC Negative Negative Specific Dawson UA POC 1.015 Blood UA POC Negative Negative PH UA POC 5.0 Protein UA POC Negative Negative mg/dL Urobilinogen UA POC 0.2 E.U./dL 0.2 E.U./dL, 1.0 E.U./dL, 8 , Unable to interpret due to interfering substances mg/dL Nitrite UA POC Negative Negative Leukocytes UA POC Negative Negative Urine Urine specimen obtained by clean catch procedure / Unknown 02/11/2025 8:20 AM EDT Loretta Alvarez MD POINT OF CARE TEST ENTER/EDIT OR DERABLES Final Result documented in this encounter Visit Diagnoses Diagnosis TERRANCE (stress urinary incontinence, female)- Primary Urge incontinence Urinary urgency Urgency of urination Urinary frequency Prolapse of anterior vaginal wall Nocturia documented in this encounter Historical Medications * This list may reflect changes made after this encounter. traZODone (DESYREL) 100 mg tablet TAKE 3 TABLETS BY MOUTH AT BEDTIME NEEDED Gas Relief Extra Strength 125 mg capsule 125 MG ORALLY DAILY 01/19/2025 senna (SENOKOT) 8.6 mg tablet Take 1 tablet (8.6 mg total) by mouth. 01/19/2025 5 Vitamin 27 mg iron- 0.8 mg per tablet Take 1 tablet by mouth 1 (one) time each day in the morning. oxyBUTYnin XL (DITROPAN-XL) 5 mg 24 hr tablet TAKE 1 TABLET BY MOUTH ONCE PER DAY. DO NOT CRUSH, CHEW, OR SPLIT. 08/15/2024 ondansetron ODT (ZOFRAN-ODT) 4 mg disintegrating tablet Take 1 tablet (4 mg total) by mouth every 6 (six) hours. for 3 days 01/18/2025 OLANZapine (ZyPREXA) 10 mg tablet Take 1 tablet (10 mg total) by mouth at bedtime. nystatin (MYCOSTATIN) cream Apply topically every 12 hours. 07/18/2023 magnesium citrate solution Use 1/2 bottle once and then other half in 6hrs 02/03/2025 famotidine (PEPCID) 20 mg tablet TAKE 1 TABLET BY MOUTH IF NEEDED IN THE MORNING AND AT BEDTIME FOR HEARTBURN 04/23/2023 cloNIDine (CATAPRES) 0.3 mg tablet Take 1 tablet (0.3 mg total) by mouth 2 times daily. bisacodyL (DULCOLAX) 5 mg EC tablet TAKE 1 TABLET BY MOUTH IF NEEDED EACH DAY FOR CONSTIPATION. DO NOT CRUSH, CHEW, OR SPLIT. 02/03/2025 albuterol HFA (PROAIR HFA ; PROVENTIL HFA ; VENTOLIN HFA) 90 mcg/actuation inhaler Inhale 2 puffs by mouth every 6 hours as needed. 12/26/2022 acetaminophen (TYLENOL) 500 mg tablet Take 1 tablet (500 mg total) by mouth every 6 (six) hours. for 7 days 01/18/2025 added in this encounter Orders Outpatient Referral Count Last Ordered Date Fir st Ordered Date AMB REFERRAL TO UROGYNECOLOGY 1 02/10/2025 documented in this encounter Additional Health Concerns Active Problems Noted Date Diagnosed Date Autogenerated Problem 02/10/2025 documented as of this encounter Care Teams Radiotelephone Operator Relationship Specialty Start Date End Date Daniel Gutierrez NPAbhishek: [phone] [address] [place], [place] PCP - General Internal Medicine 02/10/25 documented as of this encounter
--- NOTE | ~2025-02-13 | XR_ITS ---
EXAMINATION: XR ABDOMEN KUB CLINICAL INDICATION: constipation COMPARISON: None available. TECHNIQUE: AP view of the abdomen. FINDINGS: There is moderate stool in the right colon and rectum. There is a normal bowel gas pattern. XR/XR KUB IMPRESSION: Moderate right colonic and rectal stool. Electronically signed by: Felipe Villaseñor MD 02/13/2025 03:58 PM EDT
--- OUTSIDE RECORDS SUMMARY | 2025-02-13 14:40 | XMS_ITS | Encounter Summary ---
Author Organization [employer] Address [address] [place] [address] Care Team Providers Care Typewriter Assembly And Parts Inspector Name Role Phone Daniel Gutierrez MD Primary Care Prov ider Reason for Visit * Reason Comments Constipation Encounter Details Date Type Department Care Team ([facility] st Contact Info) Description 02/13/2025 2:40 PM EDT Office Visit [facility] [address] [address] Constipation, unspecified constipation type (Primary Dx) Social History Tobacco Use Types Packs/Day Years Used Date Smoking Tobacco: Former Cigarettes Smokeless Tobacco: Never Depression Answer Date Recorded Patient Health Questionnaire-9 Score 0 03/27/2023 Patient Health Questionnaire-9 Score 0 03/27/2023 Last PHQ-9: Questionnaire Data Not on file 1 05/28/2022 Housing Stability Answer Date Recorded What is your housing situation today? I have charleslanie gilman 03/20/[address] you [...] Patient Health Questionnaire-2 Score 0 03/27/2023 Comments No Sex and Gender Information Value Date Recorded Sex Assigned at Female 02/13/2022 10:17 AM EDT Legal Sex Female 10:17 AM EDT Gender Identity Female 02/13/2022 10:17 AM EDT Sexual Orientation Straight 02/13/2022 10 :17 AM EDT documented as of this encounter Last Filed Vital Signs Vital Sign Reading Time Taken Comments Blood Pressure 125/75 02/13/2025 2:49 PM EDT Pulse 83 02/13/2025 2:49 PM EDT Temperature 34.8 C (94.7 F) 02/13/2025 2:49 PM EDT Respiratory Rate 21 02/13/2025 2:49 PM EDT Oxygen Saturation 98% 02/13/2025 2:49 PM EDT Inhaled Oxygen Concentration - - Weight 91.5 kg (201 lb 12.8 oz) 02/13/2025 2:49 PM EDT Height 165.1 cm (5' 5 ) 02/13/2025 2:49 PM EDT Body Mass Index 33.58 02/13/2025 2:49 PM EDT documented in this encounter Plan of Treatment Upcoming Encounters Date Type Department Care Team (Late st Contact Info) Description 03/09/2025 8:30 AM EST Telemedicine [facility] [address] [place] [address] Daniel Gutierrez MD [address] [place] [address] Scheduled Orders Name Type Priority Associated Diagnoses Orde r Schedule XR KUB and Upright 2 Views Imaging Routine Constipation, unspecified constipation type Expected: 02/13/2025, Expires: 02/13/2026 documented as of this encounter Visit Diagnoses Diagnosis Constipation, unspecified constipation type- Primary documented in this encounter Additional Health Concerns Assessment Noted Time PHQ-9 Depression Total Score: 0 03/27/20 23 8:55 AM EST documented as of this encounter Care Teams Typewriter Assembly And Parts Inspector Relationship Specialty Start Date End Date Daniel Gutierrez MD [address] [place] [address] PCP - General Internal Medicine 08/28/19 [facility] 08/28/19 documented as of this encounter
--- OUTSIDE RECORDS SUMMARY | 2025-02-13 15:46 | XMS_ITS | Encounter Summary ---
Author Organization [employer] Address [address] [place] [address] [address] [place] [address] Care Team Providers Care Bi Consultant Name Role Phone Daniel Gutierrez MD Primary Care Prov ider Encounter Details Date Type Department Care Team ([facility] Contact Info) Description 09/18/2023 Orders Only [facility] [address] [place], [place] [id number] Daniel Gutierrez MD [address] [place] [address] Social History Tobacco Use Types Packs/Day Years [...] Info) Description 03/09/2025 8:30 AM EST Telemedicine [facility] [address] [place] [address] Daniel Gutierrez MD [address] [place] [address] documented as of this encounter Visit Diagnoses Not on filedocumented in this encounter Additional Health Concerns Assessment Noted Time PHQ-9 Depression Total Score: 0 03/27/20 23 8:55 AM EST documented as of this encounter Care Teams Bi Consultant Relationship Specialty Start Date End Date Daniel Gutierrez MD [address] [place] [address] PCP - General Internal Medicine 08/28/19 [facility] 08/28/19 documented as of this encounter
--- OUTSIDE RECORDS SUMMARY | 2025-02-13 15:46 | XMS_ITS | Encounter Summary ---
Author Organization [facility] Address [address] [place] [address] Care Team Providers Care Big Machine Consultant Name Role Phone Daniel Gutierrez Primary Care Provide r Encounter Details Date Type Department Care Team (Late st Contact Info) Description 02/10/2025 Telephone Urogynecology - [place] [address] [place] [phone] Stan Alvarez MD [address] [place] [address] Social History Tobacco Use Types Packs/Day Years Used Date Smoking Tobacco: Never Assessed Comments Unknown Sex and Gender Information Value Date Recorded Sex Assigned at Not on file Legal Sex Female 1:09 PM EST Gender Identity Not on file Sexual Orientation Not on file documented as of this encounter Progress Notes * Stan Alvarez MD - 02/10/2025 11:28 AM EDT SURGICAL BOOKING WORKSHEET FOR STAN ALVAREZ MD UROGYNECOLOGY 02/10/2025 PATIENT SEEN IN [place] Patient's Name: Bere Browning : 1985 Payor information: Payor: [facility] / Plan: [employer] / Product Type: *No Product type* / Allergies: Allergies[1] Diagnosis: 1. TERRANCE (stress urinary incontinence, female) 2. Prolapse of anterior vaginal wall Surgery Procedure Planned: Retropubic midurethral sling with cystourethroscopy (CPT 51702) Anterior colporrhaphy (CPT 19238) Possible posterior colporrhaphy, (CPT 40866) Possible sacrospinous hysteropexy (colpopexy, vaginal, extra-peritoneal approach (sacrospinous) CPT: 63533) Special Instructions/Equipment needed: PREOP [] Urodynamics already scheduled [x] Urodynamics with Ana Tapia APRN [] PNE needed [] Bladder diaries provided today [] Bladder diaries NEEDED [] Urodynamics NOT NEEDED [] urodynamics review / surgical consult [] okay to sign consent the day of surgery [x] medical clearance [] cardiac clearance [] Other: INTRA-OP [] None [] C- Arm [] Axonics rep [] Bulkamid scope [] Robot [] Angie Bullard PA-C [x] Mary Linares PA-C [] Other: POSTOP [x] 2 week postop with DAVID TAPIA [x] 6 week postop with [] 2-4 weeks FOLLOW UP with MD Type of Anesthesia: GENERAL (LMA OR ETT - anesthesia choice) Stay: Same day discharge Time Needed: 4 hrs total = 3 hrs operating time (skin incision to skin incision) + 1 hr for room turnover, set-up, anesthesia time, and positioning Urgency: elective Medicaid Sterilization (within 30 days - 180 days) and/or Medicare HI-1 form signed, if needed? N/a Date signed: Stan Alvarez MD 02/10/2025 [1] No Known Allergies documented in this encounter Plan of Treatment Upcoming Encounters Date Type Department Care Team (Late st Contact Info) Description 05/21/2025 9:00 AM EST Office Visit Urogynecology - [address] [phone] Ana Tapia NP [address] [address] 08/11/2025 8:30 AM EDT Consult Urogynecology [address] [phone] Stan Alvarez MD [address] [address] 08/24/2025 Hospital Encounter [facility] Main OR [address] [place] [phone] Stan Alvarez MD [address] [address] 09/10/2025 11:00 AM EDT Office Visit Urogynecology - [place] [phone] Ana Tapia NP [address] [address] 10/06/2025 8:30 AM EDT Office Visit Urogynecology - [place] [phone] Stan Alvarez MD [address] [address] Scheduled Procedures Name Priority Associated Diagnoses Date/Ti [...] Autogenerat ed Goal Care Plan Autogenerated Problem Barbra Ojeda MA documented as of this encounter Visit Diagnoses Diagnosis TERRANCE (stress urinary incontinence, female)- Primary Prolapse of anterior vaginal wall documented in this encounter Additional Health Concerns Active Problems Noted Date Diagnosed Date Autogenerated Problem 02/10/2025 documented as of this encounter Care Teams Big Machine Consultant Relationship Specialty Start Date End Date Daniel Gutierrez [address] [place], [place] PCP - General Internal Medicine 02/10/25 documented as of this encounter
--- OUTSIDE RECORDS SUMMARY | 2025-02-13 15:46 | XMS_ITS | Encounter Summary ---
Author Organization [employer] Address [address] [place] [address] Care Team Providers Care Emergency Department Coordinator Name Role Phone Daniel Gutierrez MD Primary Care Prov ider Reason for Visit * Reason Onset Date Comments Medication Question 08/10/2023 Encounter Details Date Type Department Care Team ([facility] st Contact Info) Description 08/10/2023 Telephone [facility] CHC MED & PEDS [address] [place] [address] Daniel Gutierrez MD [address] [place] [address] Medication Question Social History Tobacco Use Types [...] is not working. Please contact pt at [phone] documented in this encounter Plan of Treatment Upcoming Encounters Date Type Department Care Team (Late st Contact Info) Description 03/09/2025 8:30 AM EST Telemedicine [facility] CHC MED & PEDS [address] [place] [address] Daniel Gutierrez MD [address] [place] [address] documented as of this encounter Visit Diagnoses Not on filedocumented in this encounter Additional Health Concerns Assessment Noted Time PHQ-9 Depression Total Score: 0 03/27/20 8:55 AM EST documented as of this encounter Care Teams Emergency Department Coordinator Relationship Specialty Start Date End Date Daniel Gutierrez MD [address] [place] [address] PCP - General Internal Medicine 08/28/19 [facility] 08/28/19 documented as of this encounter
--- OUTSIDE RECORDS SUMMARY | 2025-02-13 15:46 | XMS_ITS | Encounter Summary ---
Author Organization [employer] Address [address] [place] [address] Care Team Providers Care Silver Solderer Name Role Phone Daniel Gutierrez MD Primary Care Prov ider Encounter Details Date Type Department Care Team (Late Contact Info) Description 07/12/2022 Abstract [facility] MEDICINE [address] [place], [place] [phone] Daniel Gutierrez MD [address] [place], [place] [phone] Social History Tobacco Use Types Packs/Day Years [...] Encounters Date Type Department Care Team (Late Contact Info) Description 03/09/2025 8:30 AM EST Telemedicine [facility] CHC MED & PEDS [address] [place], [place] [phone] Daniel Gutierrez MD [address] [place], [place] [phone] documented as of this encounter Visit Diagnoses Not on filedocumented in this encounter Care Teams Silver Solderer Relationship Specialty Start Date End Date Daniel Gutierrez MD [address] [place] [address] PCP - General Internal Medicine 08/28/19 [facility] 08/28/19 documented as of this encounter
--- OUTSIDE RECORDS SUMMARY | 2025-02-13 15:46 | XMS_ITS | Encounter Summary ---
Author Organization [employer] Address [address] [place] [address] [address], [place] [address] Care Team Providers Care Rider Ticket Worker Name Role Phone Daniel Gutierrez MD Primary Care Prov ider Encounter Details Date Type Department Care Team (Late st Contact Info) Description 04/26/2022 Orders Only [facility] MEDICINE [address] [place], [place] [phone] Daniel Gutierrez MD [address] [place], [place] [phone] Smoker Social History Tobacco Use Types Packs/Day [...] Info) Description 03/09/2025 8:30 AM EST Telemedicine [facility] CHC MED & PEDS [address] [place], [place] [phone] Daniel Gutierrez MD [address] [place], [place] [phone] documented as of this encounter Visit Diagnoses Diagnosis Smoker Tobacco use disorder documented in this encounter Care Teams Rider Ticket Worker Relationship Specialty Start Date End Date Daniel Gutierrez MD [address] [place] [address] PCP - General Internal Medicine 08/28/19 [facility] 08/28/19 documented as of this encounter
--- OUTSIDE RECORDS SUMMARY | 2025-02-13 15:47 | XMS_ITS | Encounter Summary ---
Author Organization [employer] Address [address] [place] [address] [place] [address] Care Team Providers Care Supervisor Type Photography Name Role Phone Daniel Gutierrez MD Primary Care Prov ider Reason for Visit * Reason Onset Date Comments Nurse Triage 02/13/2025 Encounter Details Date Type Department Care Team ([facility] st Contact Info) Description 02/13/2025 Telephone [facility] CHC MED & PEDS [address] [place] [address] Daniel Gutierrez MD [address] [place] [address] Nurse Triage Social History Tobacco Use Types [...] encounter Miscellaneous Notes * Telephone Encounter - Rose Delgadillo RN - 02/13/2025 2:12 PM EDT TC placed to pt for triage. Pt reports constipation is a chronic problem. Pt reports they saw [facility] provider on 01/19/25 and was prescribed a stool softener to take in the evenings which did not work. Pt reports they were seen last week by [facility] provider and was prescribed bisacodyl (Dulcolax) 5 MG EC tablet and magnesium citrate oral solution. Pt reports the bisacodyl (Dulcolax) 5 MG EC tablet does not work and the only medication that has been helping them is the magnesium citrate oral solution. Pt reports they took the magnesium citrate oral solution on Sunday and was able to have a complete bowel movement on Sunday. Pt reports when they took the magnesium citrate oral solution the other night, they waited the 6 hours without a bowel movement and then took the other half. Pt reports after taking the second half of the magnesium citrate oral solution they were running to the restroom but were only passing gas until they had the bowel movement on Sunday morning. Pt described the feelingas a bubbly stomach. Pt reports since then they have been taking the medications as prescribed and stool is hard and it is extremely difficult to pass. Pt reports they had a small bowel movement yesterday. Pt states they are scheduled for an appointment with GI regarding their constipation but are not able to be seen for 2 months. Pt reports the only way they can have a bowel movement is with themagnesium citrate oral solution. Pt reports if they don't take it, they are unable to have a BM. Ptreporting mild abdominal bloating and reports they are uncomfortable. Pt denies nausea or vomiting.Pt reports they have had to go to the ED in the past due to severe abdominal pain from constipationand reports they do not feel this way at time of call. No [facility] or [facility] team availability today. Advised pt to come to [facility] at [facility] for evaluation today. Pt reports they will get ready and come to [facility] forevaluation. Advised of [facility] hours today and Sunday [facility] hours. Pt reports they will get ready and come to [facility] now. TC placed to [facility] RN Keira. No answer. Secure chat sent to Keira to inform pt will be coming to [facility]. Protocol Used: Constipation (Adult) Protocol-Based Disposition: See in Office or Video Visit Today Positive Triage Question: * Abdomen is more swollen than usual * All higher-acuity triage questions were negative Care Advice Discussed: * Reasons To Call Back - Constipation lasts more than 1 week after using Care Advice - Abdomen swelling, vomiting or fever occur - Constant or increasing abdomen pain - You think you need to be seen - You become worse * Telephone Encounter - Elena Cadet - 02/13/2025 1:45 PM EDT Symptom: Constipation Outcome: Schedule an urgent appointment (within 1 hour) or talk to a nurse or provider soon Reason: Severe pain now Contact pt at [phone] documented in this encounter Plan of Treatment Upcoming Encounters Date Type Department Care Team (Late st Contact Info) Description 03/09/2025 8:30 AM EST Telemedicine [facility] CHC MED & PEDS [address] [place], [place] [phone] Daniel Gutierrez MD [address] [place] [address] documented as of this encounter Visit Diagnoses Not on filedocumented in this encounter Additional Health Concerns Assessment Noted Time PHQ-9 Depression Total Score: 0 03/27/20 23 8:55 AM EST documented as of this encounter Care Teams Supervisor Type Photography Relationship Specialty Start Date End Date Daniel Gutierrez MD [address] [place] [address] PCP - General Internal Medicine 08/28/19 [facility] 08/28/19 documented as of this encounter
--- OUTSIDE RECORDS SUMMARY | 2025-02-13 15:47 | XMS_ITS | Encounter Summary ---
Author Organization [facility] Address [address] [place] [address] Care Team Providers Care Forensic Nurse Name Role Phone Daniel Gutierrez Primary Care Provide r Reason for Visit * Reason Onset Date Comments schedule surgery 02/10/2025 Scheduled surge ry in office with patient for 08/24. Patient was added to [employer], depot, epic, and spreadsheet. Patient was given pre-op and post-op appts. Along with pre-op and post op instructions. Encounter Details Date Type Department Care Team (Late Contact Info) Description 02/10/2025 Telephone Urogynecology - [facility] [address] [place] [phone] Barbra Cuevas [place] Social History Tobacco Use Types Packs/Day Years Used Date Smoking Tobacco: Never Assessed Comments Unknown Sex and Gender Information Value Date Recorded Sex Assigned at Not on file Legal Sex Female 1:09 PM EST Gender Identity Not on file Sexual Orientation Not on file documented as of this encounter Progress Notes * Barbra Cuevas MA - 02/10/2025 1:42 PM EDT Scheduled surgery in office with patient for 08/24. Patient was added to [employer] [facility], depot, epic, and spreadsheet. Patient was given pre-op and post-op appts. Along with pre-op and post op instructions. documented in this encounter Plan of Treatment Upcoming Encounters Date Type Department Care Team (Late Contact Info) Description 05/21/2025 9:00 AM EST Office Visit Urogynecology - [facility] [address] [place], [place] [phone] Ana Holden NP [address] [address] 08/11/2025 8:30 AM EDT Consult Urogynecology [address] [phone] Loretta Alvarez MD [address] [address] 08/24/2025 Hospital Encounter [facility] Main OR [address] [place] [phone] Loretta Alvarez MD [address] [address] 09/10/2025 11:00 AM EDT Office Visit Urogynecology - [address] [phone] Ana Holden NP [address] [address] 10/06/2025 8:30 AM EDT Office Visit Urogynecology [address] [phone] Loretta Alvarez MD [address] [address] Scheduled Procedures Name Priority Associated Diagnoses Date/Ti [...] Sanz [place] documented as of this encounter Visit Diagnoses Not on filedocumented in this encounter Additional Health Concerns Active Problems Noted Date Diagnosed Date Autogenerated Problem 02/10/2025 documented as of this encounter Care Teams Forensic Nurse Relationship Specialty Start Date End Date Daniel Gutierrez [address] [place], [place] PCP - General Internal Medicine 02/10/25 documented as of this encounter
--- OUTSIDE RECORDS SUMMARY | 2025-02-13 15:47 | XMS_ITS | Encounter Summary ---
Author Organization [employer] Address [address] [place] [address] 7 [place] [address] Care Team Providers Care Store Person Name Role Phone Daniel Gutierrez MD Primary Care Prov ider Reason for Visit * Reason Onset Date Comments Pre-op Exam 02/10/2025 Encounter Details Date Type Department Care Team ([facility] Contact Info) Description 02/10/2025 Telephone [facility] MED & PEDS [address] [place] [address] Daniel Gutierrez MD [address] [place] [address] Pre-op Exam Social History Tobacco Use Types Packs/Day Years [...] encounter Miscellaneous Notes * Telephone Encounter - Prasanna Rachel - 02/10/2025 1:58 PM EDT Date of Surgery: 08/24/2025 Surgical procedure being done: Retro public mid urethral fling with Cystourethroscopy Anterior colporrhaphy Posterior Colporrhaphy Hysteropexy Type of anesthesia: general anesthesia Lab needed: Yes EKG: Yes BMP CBC Surgeon's name: Loretta mirza Facility name: [facility] Surgeon's office number: [phone] Surgeon's office fax number: [phone] Contact name (person you spoke with): Lizbeth Last office note from surgeon requested: Yes Send Message to Frederick Liu Contact [facility] with the appointment confirmation as well [phone] documented in this encounter Plan of Treatment Upcoming Encounters Date Type Department Care Team (Late st Contact Info) Description 03/09/2025 8:30 AM EST Telemedicine [facility] CHC MED & PEDS [address] [place] [address] Daniel Gutierrez MD [address] [place] [address] documented as of this encounter Visit Diagnoses Not on filedocumented in this encounter Additional Health Concerns Assessment Noted Time PHQ-9 Depression Total Score: 0 03/27/20 23 8:55 AM EST documented as of this encounter Care Teams Store Person Relationship Specialty Start Date End Date Daniel Gutierrez MD [address] [place] [address] PCP - General Internal Medicine 08/28/19 [facility] 08/28/19 documented as of this encounter
--- OUTSIDE RECORDS SUMMARY | 2025-02-13 15:47 | XMS_ITS | Encounter Summary ---
Author Organization [employer] Address [address] [facility] 7 [place] [address] Care Team Providers Care Birth Certificate Clerk Name Role Phone Daniel Gutierrez MD Primary Care Prov ider Reason for Visit * Reason Onset Date Comments Nurse Triage 02/13/2024 Encounter Details Date Type Department Care Team (Late st Contact Info) Description 02/13/2024 Telephone [facility] MEDICINE [address] [place] [address] Daniel Gutierrez MD [address] [place] [address] Nurse Triage Social History Tobacco Use Types [...] Info) Description 03/09/2025 8:30 AM EST Telemedicine [facility] CHC MED & PEDS [address] [place] [address] Daniel Gutierrez MD [address] [place] [address] documented as of this encounter Visit Diagnoses Not on filedocumented in this encounter Additional Health Concerns Assessment Noted Time PHQ-9 Depression Total Score: 0 03/27/20 8:55 AM EST documented as of this encounter Care Teams Birth Certificate Clerk Relationship Specialty Start Date End Date Daniel Gutierrez MD [address] [place] [address] PCP - General Internal Medicine 08/28/19 [facility] 08/28/19 documented as of this encounter
--- OUTSIDE RECORDS SUMMARY | 2025-02-13 15:47 | XMS_ITS | Encounter Summary ---
Author Organization [employer] Address [address] [facility] 7 [place] [address] Care Team Providers Care Personnel Recruiter Name Role Phone Daniel Gutierrez MD Primary Care Prov ider Reason for Visit * Reason Onset Date Comments Durable Medical Equipment 07/24/2024 Encounter Details Date Type Department Care Team ([facility] st Contact Info) Description 07/24/2024 Telephone [facility] MEDICINE [address] [place] [address] Daniel Gutierrez MD [address] [place] [address] Durable Medical Equipment Social History Tobacco Use [...] Persaud MD , Can you please review Berekareem Jones 's chart and advised on next steps to complete request for this patient. Natalia Hough LPN Tc from pt requesting wipes, pt report using 1/2 package a day. Gaggerman asked how many she needs, she states all that you can give me . No quantity was provided to technical report writer. * Telephone Encounter - Jenn Lorenz - 07/24/2024 9:43 AM EDT Tc from pt requesting wipes, pt report using 1/2 package a day. Gaggerman asked how many she needs, she states all that you can give me . No quantity was provided to technical report writer. documented in this encounter Plan of Treatment Upcoming Encounters Date Type Department Care Team ([facility] st Contact Info) Description 03/09/2025 8:30 AM EST Telemedicine [facility] MED & PEDS [address] [place], [place] [phone] Daniel Gutierrez MD [address] [place], [place] [phone] documented as of this encounter Visit Diagnoses Not on filedocumented in this encounter Additional Health Concerns Assessment Noted Time PHQ-9 Depression Total Score: 0 03/27/20 23 8:55 AM EST documented as of this encounter Care Teams Personnel Recruiter Relationship Specialty Start Date End Date Daniel Gutierrez MD [address] [place] [address] PCP - General Internal Medicine 08/28/19 [facility] 08/28/19 documented as of this encounter
--- OUTSIDE RECORDS SUMMARY | 2025-02-13 15:47 | XMS_ITS | Encounter Summary ---
Author Organization [employer] Address [address] [facility] 7t [place] [address] Care Team Providers Care Riprap Worker Name Role Phone Daniel Gutierrez MD Primary Care Prov ider Encounter Details Date Type Department Care Team (Latest Contact Info) Description 02/13/2025 Travel Social History Tobacco Use Types Packs/Day Years [...] Description 03/09/2025 8:30 AM EST Telemedicine [facility] MED & PEDS [address] [place] [address] Daniel Gutierrez MD [address] [place] [address] documented as of this encounter Visit Diagnoses Not on filedocumented in this encounter Additional Health Concerns Assessment Noted Time PHQ-9 Depression Total Score: 0 03/27/20 23 8:55 AM EST documented as of this encounter Care Teams Riprap Worker Relationship Specialty Start Date End Date Daniel Gutierrez MD [address] [place] [address] PCP - General Internal Medicine 08/28/19 [facility] 08/28/19 documented as of this encounter
--- OUTSIDE RECORDS SUMMARY | 2025-02-13 15:47 | XMS_ITS | Clinical Summary ---
Author Organization [facility] Address [address] [place] [phone] Phone Care Team Providers Care Home Health Care Provider Name Role Phone Daniel Gutierrez Primary Care Provide r Allergies No known active allergies Medications acetaminophen (TYLENOL) 500 mg tablet Take 1 tablet (500 mg total) by mouth every 6 (six) hours. for 7 days 5 Active albuterol HFA (PROAIR HFA ; PROVENTIL HFA ; VENTOLIN HFA) 90 mcg/actuation inhaler Inhale 2 puffs by mouth every 6 hours as needed. 3 Active bisacodyL (DULCOLAX) 5 mg EC tablet TAKE 1 TABLET BY MOUTH IF NEEDED EACH DAY FOR CONSTIPATION. DO NOT CRUSH, CHEW, OR SPLIT. 5 Active cloNIDine (CATAPRES) 0.3 mg tablet Take 1 tablet (0.3 mg total) by mouth 2 times daily. Active famotidine (PEPCID) 20 mg tablet TAKE 1 TABLET BY MOUTH IF NEEDED IN THE MORNING AND AT BEDTIME FOR HEARTBURN 4 Active magnesium citrate solution Use 1/2 bottle once and then other half in 6hrs 5 Active nystatin (MYCOSTATIN) cream Apply topically every 12 hours. 4 Active OLANZapine (ZyPREXA) 10 mg tablet Take 1 tablet (10 mg total) by mouth at bedtime. Active ondansetron ODT (ZOFRAN-ODT) 4 mg disintegrating tablet Take 1 tablet (4 mg total) by mouth every 6 (six) hours. for 3 days 5 Active oxyBUTYnin XL (DITROPAN-XL) 5 mg 24 hr tablet TAKE 1 TABLET BY MOUTH ONCE PER DAY. DO NOT CRUSH, CHEW, OR SPLIT. Active Vitamin 27 mg iron- 0.8 mg per tablet Take 1 tablet by mouth 1 (one) time each day in the morning. Active senna (SENOKOT) 8.6 mg tablet Take 1 tablet (8.6 mg total) by mouth. 03/20/20 25 Active Gas Relief Extra Strength 125 mg capsule 125 MG ORALLY DAILY Active traZODone (DESYREL) 100 mg tablet TAKE 3 TABLETS BY MOUTH AT BEDTIME NEEDED Active Encounters Date Type Department Care Team Description 02/10/2025 11:00 AM EDT Office Visit Urogynecology - [address] [phone] Loretta Alvarez MD TERRANCE (stress urinary incontinence, female) (Primary Dx); Urge incontinence; Urinary urgency; Urinary frequency; Prolapse of anterior vaginal wall; Nocturia 02/10/2025 Telephone Urogynecology - [address] [phone] Barbra Cuevas MS 02/10/2025 Telephone Urogynecology [address] [phone] Loretta Alvarez MD from Last 3 Months Social History Tobacco Use Types Packs/Day Years Used Date Smoking Tobacco: Never Assessed Comments Unknown Sex and Gender Information Value Date Recorded Sex Assigned at Not on file Legal Sex Female 1:09 PM EST Gender Identity Not on file Sexual Orientation Not on file Last Filed Vital Signs Vital Sign Reading [...] Mass Index 33.63 02/10/2025 10:44 AM EDT Plan of Treatment Upcoming Encounters Date Type Department Care Team (Late st Contact Info) Description 05/21/2025 9:00 AM EST Office Visit Urogynecology [address] [phone] Ana Holden, NET LEAD ARCHITECT [address] [address] 08/11/2025 8:30 AM EDT Consult Urogynecology - [address] [phone] Loretta Alvarez MD [address] [address] 08/24/2025 Hospital Encounter [facility] [place] [address] [place] [phone] Loretta Alvarez MD [address] [address] 09/10/2025 11:00 AM EDT Office Visit Urogynecology [address] [phone] Ana Holden, NET LEAD ARCHITECT [address] [address] 10/06/2025 8:30 AM EDT Office Visit Urogynecology [address] [phone] Loretta Alvarez MD [address] [address] Scheduled Procedures Name Priority Associated Diagnoses Date/Ti me SLING SUBURETHRAL TERRANCE (stress urinary incontinence, female) Prolapse of anterior vaginal wall COLPORRHAPHY ANTERIOR POSTERIOR TERRANCE (stress urinary incontinence, female) Prolapse of anterior vaginal wall SUSPENSION VAGINAL VAULT VAGINAL TERRANCE (stress urinary incontinence, female) Prolapse of anterior vaginal wall Health Maintenance Due Date Last Done Comments Pneumococcal Vaccine: Pediatrics (0 to 5 Years) and At-Risk Patients (6 to 49 Years) (1 of 2 - PCV) 2006 Cervical Cancer Screening: Pap Smear 2008 Depression Screening 04/16/2024 Social Influencers of Health Screening 10/28/2024 COVID-19 Vaccine ( season) 2024 10/11/2020, 09/17/2020 Influenza Vaccine (#1) 2024 , 02/22/2021, 01/14/2019, Additional history exists Cholesterol Screening (Lipid Panel) 03/27/2028 03/27/2023 DTaP,Tdap,and Td Vaccines (8 - Td or Tdap) 03/27/2033 03/27/2023, 04/22/1999, 12/14/1998, Additional history exists RSV Immunization Adult Patients (1 - 1-dose 75+ series) 2062 HIB Vaccines Completed 05/21/1989 IPV Vaccines Completed 12/14/1998, 01/16, 08/13/1997, Additional history exists MMR Vaccines Completed 04/22/1999, 08/1989, 10/31/1988 Hepatitis B Vaccines Completed 10/20/1999, 05/24/1999, 04/22/1999 HPV Vaccines Completed 02/22/2017, 08/15, 07/11/2011 HIV Screening Completed 07/12/2023 Hepatitis C Screening Completed 07/12/2023 Hepatitis A Vaccines Aged Out No long er eligible based on patient's age to complete this topic Meningococcal ACWY Vaccine Aged Out N o longer eligible based on patient's age to complete this topic Meningococcal B Vaccine Aged Out No l onger eligible based on patient's age to complete this topic RSV Immunization Patients Under 20 months Aged Out No longer eligible based on patient's age to complete this topic Varicella Vaccines Aged Out No longer eligible based on patient's age to complete this topic Goals Goal Patient Goal Type Associated Problems Recent Progress Patient-Stated? Author Autogenerat ed Goal Care Plan Autogenerated Problem No Barbra Sanz MA Procedures Procedure Name Priority Date/Time Associated Diagnosis Comments POC URINE AUTO W/O MICRO Routine 02/11/2025 8:20 AM EDT Urinary urgency from Last 3 Months Results * POC Urine Auto W/O Micro (02/11/2025 8:20 AM EDT) Glucose UA POC Negative Negative, Trace mg/dL Bilirubin UA POC Negative Negative Ketones UA POC Negative Negative Specific [place] UA POC 1.015 Blood UA POC Negative [...] CARE TEST ENTER/EDIT OR DERABLES Final Result from Last 3 Months Additional Health Concerns Active Problems Noted Date Diagnosed Date Autogenerated Problem 02/10/2025 Insurance [facility] Member Subscriber Plan / Payer (Ef fective 2014-Present) Name:BERE BROWNING Relation to Subscriber:Self Name:Bere Browning Payer ID:[id number] Group ID:[id number] Type:Not on file Address: [place] [address] [address] [phone] Care Teams Home Health Care Provider Relationship Specialty Start Date End Date Daniel Gutierrez [address] [place], [place] PCP - General Internal Medicine 02/10/25
--- OUTSIDE RECORDS SUMMARY | 2025-02-13 15:47 | XMS_ITS | Encounter Summary ---
Author Organization [employer] [facility] [employer] Address [address] [place] [id number] Care Team Providers Care Nutrition Aide Name Role Phone Daniel Gutierrez MD Primary Care Prov ider Reason for Visit * Reason Onset Date Comments Med Refill 09/13/2022 Encounter Details Date Type Department Care Team ([facility] Contact Info) Description 09/13/2022 Telephone [facility] [address] [place] [address] Daniel Gutierrez MD [address] [place] [address] Med Refill Social History Tobacco Use Types [...] 1) 21 MG/24HR patch Please sent to [facility]/pharmacy #[id number] - [place] [facility] - [address] [place] [address] documented in this encounter Plan of Treatment Upcoming Encounters Date Type Department Care Team (Late st Contact Info) Description 03/09/2025 8:30 AM EST Telemedicine [facility] [address] [place] [address] Daniel Gutierrez MD [address] [place] [address] documented as of this encounter Visit Diagnoses Not on filedocumented in this encounter Care Teams Nutrition Aide Relationship Specialty Start Date End Date Daniel Gutierrez MD [address] [place] [address] PCP - General Internal Medicine 08/28/19 [facility] 08/28/19 documented as of this encounter
--- OUTSIDE RECORDS SUMMARY | 2025-02-13 15:47 | XMS_ITS | Clinical Summary ---
Author Organization [employer] Address [address] [place] [address] 7[address] [place] [address] Care Team Providers Care Environmental Field Professional Name Role Phone Daniel Gutierrez MD Primary Care Prov ider Allergies Active Allergy Reactions Criticality Noted Date Comments Nitrofurantoin Hives 03/01/2017 Other reaction(s): Hives Medications * This document contains information received from the source organization and may not represent a complete record from that organization. albuterol 108 (90 Base) MCG/ACT inhalerIndicatio ns:Mild intermittent asthma without complication Inhale 2 puffs every 6 (six) hours if needed for wheezing. 18 g 11 12/27/19 23 Active famotidine (Pepcid) 20 MG tablet TAKE 1 TABLET BY MOUTH IF NEEDED IN THE MORNING AND AT BEDTIME FOR HEARTBURN 180 tablet 04/23/19 24 Active nystatin (Mycostatin) cream Apply topically every 12 (twelve) hours. 30 g 3 07/18/19 24 Active triamcinolone (Kenalog) 0.1 % cream Apply topically if needed in the morning and at bedtime (pain and swelling). 30 g 5 08/15/19 24 Active traZODone (Desyrel) 100 MG tablet Take 200 mg by mouth at bedtime. Active OLANZapine (ZyPREXA) 10 MG tablet Take 10 mg by mouth at bedtime. Active cloNIDine (Catapres) 0.3 MG tablet Take 0.3 mg by mouth 2 times daily. Active Vit-Fe Fumarate-FA ([facility] ) 27-0.8 MG tablet TAKE 1 TABLET BY MOUTH EVERY DAY IN THE MORNING 90 tablet 1 10/22/19 25 Active nicotine (Nicoderm CQ) 14 MG/24HR patch Place 1 patch on the skin 1 (one) time each day at the same time. 30 patch 12/06/19 25 Active nicotine (Nicoderm CQ) 21 MG/24HR patch Place 1 patch on the skin 1 (one) time each day at the same time. 30 patch 12/06/19 25 Active senna (Senokot) 8.6 MG tablet Take 1 tablet (8.6 mg) by mouth at bedtime. 60 tablet 2 01/20/20 25 025 Active bisacodyl (Dulcolax) 5 MG EC tablet Take 1 tablet (5 mg) by mouth if needed each day for constipation. Do not crush, chew, or split. 30 tablet 02/04/20 25 025 Active magnesium citrate oral solution Use 1/2 bottle once and then other half in 6hrs 195 mL 3 02/04/20 25 Active polyethylene glycol, PEG, 3350 (MiraLax) 17 GM/SCOOP powder Take 17 g by mouth Once per day for 3 days. 527 g 2 01/20/20 25 025 polyethylene glycol, PEG, 3350 (MiraLax) 17 GM/SCOOP powder Take 17 g by mouth Once per day. 527 g 2 02/04/20 25 025 Discontinued Active Problems Problem Noted Date Diagnosed Date [...] Encounters Date Type Department Care Team Description 02/13/2025 2:40 PM EDT Office Visit [facility] [address] [address] Constipation, unspecified constipation type (Primary Dx) 02/13/2025 Travel 02/13/2025 Telephone [facility] [address] [place] [address] Daniel Gutierrez MD Nurse Triage 02/10/2025 Telephone [facility] [address] [place] [address] Daniel Gutierrez MD Pre-op Exam 02/03/2025 8:30 AM EDT Office Visit [facility] [address] [place] [address] Agustina Pérez MD Chronic constipation (Primary Dx) 02/03/2025 Telephone [facility] [address] [place] [address] Daniel Gutierrez MD Medication Question 02/03/2025 Travel 02/02/2025 Telephone [facility] [address] [place] [phone] Daniel Gutierrez MD Medication Question 01/19/2025 9:15 AM EDT Office Visit [facility] [address] [place] [phone] Agustina Pérez MD Constipation, unspecified constipation type (Primary Dx) 01/19/2025 Telephone [facility] [address] [place] [address] Daniel Gutierrez MD Medication Question 01/19/2025 Refill [facility] [address] [place] [address] Agustina Pérez MD 01/19/2025 Travel 01/18/2025 Orders Only [facility] External Provider, [facility] 01/17/[address] [address] Flower Geller NP 01/16/[address] [address] Daniel Gutierrez MD ER Follow-up 12/05/2024 Orders Only [facility] [address] [place] [address] Daniel Gutierrez MD 11/20/[address] [address] Daniel Gutierrez MD Med Refill from Last 3 Months Immunizations Immunization Administration Dates Next Due HPV, Quadrivalent 02/22/2017,09/08/2011,07/11/19 12 Influenza injectable quadriv alent preservative free 03/27/2023,02/22/2021,01/14/2019,2018,01/04/2018,01/15/2017 Tdap 03/27/2023 Social History Tobacco Use Types Packs/Day Years Used Date Smoking Tobacco: Former Cigarettes Smokeless Tobacco: Never Tobacco Cessation:Counseling Given: Not Answered Depression Answer Date Recorded Patient Health Questionnaire-9 [...] Mass Index 33.58 02/13/2025 2:49 PM EDT Plan of Treatment Upcoming Encounters Date Type Department Care Team ([facility] st Contact Info) Description 03/09/2025 8:30 AM EST Telemedicine [facility] [address] [place] [address] Daniel Gutierrez MD [address] [place] [address] Health Maintenance Due Date Last Done Comments Disability Screening 1987 Alcohol/Substance Use Screening 1999 Family Planning (PISQ) 2002 Hepatitis B Vaccines (1 of 3 - 19+ 3-dose series) 2006 Pneumococcal Vaccine: Pediatrics (0 to 5 Years) and At-Risk Patients (6 to 49) Years (1 of 2 - PCV) 2006 SDOH Screening 03/20/2024 03/20/2023 Depression Screening 03/27/2024 03/27/2023, 03/27/20 23 COVID-19 Vaccine (3 - 2024- season) 2024 10/11/2020, 09/17/2020 Influenza Vaccine (#1) 2024 , 02/22/2021, 01/14/2019, Additional history exists Tobacco Screening 02/03/2026 02/03/2025 Cervical Cancer Screening 02/22/2026 HPV/Cotest 02/22/2026 02/22/2021 [...] Procedure Name Priority Date/Time Associated Diagnosis Comments XR KUB AND UPRIGHT 2 VIEWS Routine 01/18/2025 4:12 PM EDT COVID-19 ID NOW (BuyVIP) Routine 01/18/2025 1:47 PM EDT INFLUENZA A B2 ID NOW (OCHOA) Routine 01/18/2025 1:47 PM EDT HIGH SENSITIVITY TROPONIN I Routine 01/18/2025 11:45 AM EDT HCG, TOTAL, QN Routine 01/18/2025 9:58 AM EDT LIPASE Routine 01/18/2025 9:58 AM EDT COMPREHENSIVE METABOLIC PANEL Routine 01/18/2025 9:58 AM EDT URINALYSIS WITH REFLEX MICROSCOPIC Routine 01/18/2025 9:58 [...] Recently Relevant to Health Maintenance Results * XR KUB and Upright 2 Views (01/18/2025 4:12 PM EDT) Anatomical Region Laterality Modality Radiographic Petra ging 01/18/2025 4:12 PM EDT Narrative 01/18/2025 4:13 PM EDT [address] [address] XRay Report Signed Patient: Bere Sandy MR #: [id number] : 1985 Acct:[id number] Age/Sex: 39 / F ADM Date: 01/18/25 Loc: HO.ED Attending Dr: Ordering Physician: Humera Murphy PA-C Date of Service: 01/18/25 Procedure(s): XR KUB Accession Number(s): [id number] cc: Humera Murphy PA-C; Daniel Gutierrez MD Reason for Exam: erect position only CLINICAL HISTORY: erect position only 1 view abdomen Comparison: None provided Findings: No pneumoperitoneum or pneumatosis. Moderate fecal retention within the proximal colon. No bowel dilatation. No abnormal calcifications. No acute fractures. IMPRESSION: Nonspecific bowel gas pattern without evidence of an obstructive process. This document has been electronically signed by: Chaparrita Pizano MD on 01/18/2025 16:12:32 Dictated By: Chaparrita Pizano MD Signed By: <Electronically signed by Chaparrita Pizano MD in OV> 01/18/25 1613 DD/ 161 TD/TT: 01/18/25 161 Building Code Inspector: Procedure Note Donotuseinterpreter, Image - 01/18/[address] [address] XRay Report Signed Patient: David SandyeMR #: [id number] : 1985Acct:[id number] Age/Sex: 39 / FADM Date: 01/18/25 Loc: HO.ED Attending Dr: Ordering Physician: Humera Murphy PA-C Date of Service: 01/18/25 Procedure(s): XR KUB Accession Number(s): [id number] cc: Humera Murphy PA-C; Daniel Gutierrez MD Reason for Exam: erect position only CLINICAL HISTORY: erect position only 1 view abdomen Comparison: None provided Findings: No pneumoperitoneum or pneumatosis. Moderate fecal retention within the proximal colon. No bowel dilatation. No abnormal calcifications. No acute fractures. IMPRESSION: Nonspecific bowel gas pattern without evidence of an obstructive process. This document has been electronically signed by: Chaparrita Pizano MD on 01/18/2025 16:12:32 Dictated By: Chaparrita Pizano MD Signed By: <Electronically signed by Chaparrita Pizano MD in OV> 01/18/25 1613 DD/ 1612 TD/TT: 01/18/25 1612 Building Code Inspector: [facility] External Provider IMG XR PROCEDURES Edited Result - Final * Influenza A B2 ID NOW ([facility]) (01/18/2025 1:47 PM EDT) IDNOW SERIAL# [id number] [facility] Influenza A Negative Negative [facility] Influenza B2 Negative Negative [facility] Influenza A B2 Note See Note [facility] Comment:The Ochoa ID NOW In fluenza A B2 test is used for thequalitative detection of influenza A and B from patientswith signs and symptoms of respiratory infection.Negative results do not preclude influenza virus infectionand should not be used as the sole basis for diagnosis,treatment or other patient management decisions.There is a risk of false negative results due to thepresence of variants in the viral targets of the assay, lowlevels of virus in the specimen and co- infection withRespiratory Syncytial Virus. 01/18/2025 1:47 PM EDT 01/18/2025 1:51 PM EDT us Generic External Data Provider LAB MICROBIOLOGY - GENERAL ORDERABLES Final Result Performing Organization Address City/[facility]/ZIP Co de Phone Number [facility] [address] [place] [phone] * COVID-19 ID NOW (OCHOA) (01/18/2025 1:47 PM EDT) IDNOW SERIAL# [id number] [facility] COVID-19 TEST Negative Negative [facility] COVID-19 NOTE See Note [facility] Comment: Results are for the identification of SARS-CoV2 RNA. TheSARS-CoV2 RNA is generally detectable in respiratory samplesduring the acute phase of infection. Positive results areindicative of the presence of SARS-CoV-2 RNA; clinicalcorrelation with patient history and other diagnosticinformation is necessary to determine patient infectionstatus. Positive results do not rule out bacterial infectionor co- infection with other viruses.Testing facilities within the [facility] and itsterritories are required to report all positive results tothe appropriate public health authorities.Negative results should be treated as presumptive and, ifinconsistent with clinical signs and symptoms or necessaryfor patient management, should be tested with differentauthorized or cleared molecular tests. Negative results donot preclude SARS-CoV2 RNA infection and should not be usedas the sole basis for patient management decisions. Negativeresults should be considered in the context of a patient'srecent exposures, history and the presence of clinical signsand symptoms consistent with COVID-19.This test has been authorized by the FDA under an EmergencyUse Authorization (EUA) for use by authorized laboratories.Testing performed on the Ochoa ID NOW utilizing NAAT. 01/18/2025 1:47 PM EDT 01/18/2025 1:51 PM EDT us Generic External Data Provider LAB MOLECULAR JUSTIN GNOSTICS ORDERABLES Final Result Performing Organization Address [facility]/ZIP Co de Phone Number [facility] [address] [place] [phone] * High Sensitivity Troponin I (01/18/2025 11:45 AM EDT) [facility] TROPONIN I HIGH SENSITIVITY <2.7 <3.5 - 17.0 ng/L [facility] Comment:The Ochoa high sens itivity Troponin-I results should beused in conjunction with other diagnostic information suchas ECG, clinical observations and information, and patientsymptoms to aid in the diagnosis of RI. 01/18/2025 11:4 5 AM EDT 01/18/2025 11:48 AM EDT us Generic External Data Provider LAB BLOOD ORDERAB LES Final Result [facility] [address] [place] [phone] * (ABNORMAL) CBC auto differential (01/18/2025 9:58 AM EDT) [facility] White Blood Count 6.8 4.8 - 10.8 X10*3/uL [facility] Red Blood Count 4.35 4.20 - 5.50 X10*6/uL [facility] Hemoglobin 12.9 12.0 - 16.0 g/dl [facility] Hematocrit 36.4(L) 37.0 - 47.0 % [facility] Mean Corpuscular Volume 83.7 80.0 - 98.0 fL [facility] Mean Corpuscular Hemoglobin 29.7 27.0 - 33.0 pg [facility] Mean Corpuscular HGB Conc 35.4(H) 31.0 - 35.0 g/dl [facility] Red Cell Distribution Width 13.5 11.0 - 16.0 % [facility] Platelet Count 339 160 - 400 X10*3/uL [facility] Mean Platelet Volume 9.4 9.4 - 12.3 fL [facility] Neutrophils Percent Auto 69.7 45 - 73 % [facility] Imm Gran Pct Auto 0.1 0.0 - 0.4 % [facility] Lymphocytes Percent Auto 23.3 20 - 40 % [facility] Monocytes Percent Auto 6.6 2 - 11 % [facility] Eosinophils Percent Auto 0.0 0 - 4 % [facility] Basophils Percent Auto 0.3 0 - 2 % [facility] NRBC Pct Auto 0.0 0.0 - 0.2 /100WBC [facility] Neutrophils Absolute Auto 4.8 2.0 - 8.3 x10*3/uL [facility] Imm Gran Abs Auto 0.01 0.00 - 0.03 X10*3/uL [facility] Lymphocytes Absolute Auto 1.6 1.2 - 4.9 X10*3/uL [facility] Monocytes Absolute Auto 0.5 0.1 - 1.2 X10*3/uL [facility] Eosinophils Absolute Auto 0.0 0.0 - 0.4 X10*3/uL [facility] Basophils Absolute Auto 0.0 0.0 - 0.2 X10*3/uL [facility] NRBC Abs Auto 0.000 0.0 - 0.012 X10*3/uL [facility] 01/18/2025 9:58 AM EDT 01/18/2025 10:04 AM EDT us Generic External Data Provider LAB BLOOD ORDERAB LES Final Result [facility] [address] [place] [phone] * Urinalysis w/reflex microscopic (01/18/2025 9:58 AM EDT) Color Urine Yellow [facility] Appearance Urine Clear [facility] PH 5.5 5.0 - 9.0 [facility] Glucose Urine UA Negative Negative mg/dL [facility] Urine Blood Negative Negative [facility] Specific Poyntelle - Urine 1.020 1.005 - 1.025 [facility] Urine Protein Negative Neg-Trace mg/dL [facility] Urine Ketones Negative Negative mg/dL [facility] Nitrite Urine Negative Negative [facility] Leukocyte Esterase Urine Negative Negative [facility] 01/18/2025 9:58 AM EDT 01/18/2025 10:04 AM EDT Narrative [facility] - 01/18/2025 10:09 AM EDT [id number], Clean Catch Generic External Data Provider LAB URINE ORDERAB LES Final Result Performing Organization Address City/[facility]/ZIP Co de Phone Number [facility] [address] [place] [phone] * hCG, Total, Quantitative (01/18/2025 9:58 AM EDT) HCG Quantitative <2 mIU/mL [facility] Comment:Weeks post LMP Appro ximate hCG(Last Menstrual Period) Range (mIU/ml)3 - 4 weeks 9 - 1304 - 5 weeks 75 - 2,6005 - 6 weeks 850 - 20,8006 - 7 weeks 4000 - 100,2007 - 12 weeks 11,500 - 289,22417 - 16 weeks 18,300 - 137,13673 - 29 weeks (2nd trimester) 1,400 - 53,94352 - 41 weeks (3rd trimester) 940 - 60,000The Ochoa B- hCG assay is used for the early detection ofpregnancy; it cannot be used to diagnose any conditionunrelated to . If a B-hCG level is not supportedby the clinical evidence, results should be confirmed by analternative method (qualitative urine hCG, for example). 01/18/2025 9:58 AM EDT 01/18/2025 10:04 AM EDT us Generic External Data Provider LAB BLOOD ORDERAB LES Final Result Performing Organization Address City/[facility]/ZIP Co de Phone Number [facility] [address] [place] [phone] * Lipase (01/18/2025 9:58 AM EDT) Lipase 21 8 - 78 U/L [facility] 01/18/2025 9:58 AM EDT 01/18/2025 10:04 AM EDT us Generic External Data Provider LAB BLOOD ORDERAB LES Final Result [facility] [address] [place] [address] [phone] * (ABNORMAL) Comprehensive Metabolic Panel (01/18/2025 9:58 AM EDT) Sodium 138 135 - 145 mmol/L [facility] Potassium 4.1 3.3 - 5.1 mmol/L [facility] Chloride 110(H) 96 - 108 mmol/L [facility] Carbon Dioxide 20(L) 22 - 29 mmol/L [facility] Anion Gap 12 12 - 20 [facility] Urea Nitrogen (BUN) 7(L) 9 - 16 mg/dL [facility] Creatinine, Serum 0.62 0.5 - 1.4 mg/dL [facility] Creatinine Clr Calc Pharmacy 132.6 [facility] Comment:Provided height and weight: 162.56 cm,87 kg.eGFR (calculated from the MDRD study equation) and eCrCl(calculated from the Cockcroft-Gault equation) are based ondifferent parameters and may not yield comparable results.If eCrCl result is absurd, please check patient'sheight/weight. Estimated Glomerular Filt Rate >60 [facility] Comment:Chronic Kidney Disea se: Estimated GFR < 60 mL/min/1.29x2Agzvlm Kidney Disease: Estimated GFR < 15 mL/min/1.73m2 Glucose 91 60 - 115 mg/dL [facility] Calcium 9.3 8.4 - 10.2 mg/dL [facility] Bilirubin, Total 0.3 0.0 - 1.0 mg/dL [facility] Aspartate Amino Transferase 24 5 - 31 U/L [facility] Alanine Aminotransferase 26 0 - 31 U/L [facility] Total Protein 7.3 6.5 - 8.0 g/dL [facility] Albumin Level 4.7 3.5 - 5.0 g/dL [facility] Alkaline Phosphatase 66 39 - 117 U/L [facility] 01/18/2025 9:58 AM EDT 01/18/2025 10:04 AM EDT us Generic External Data Provider LAB BLOOD ORDERAB LES Final Result Performing Organization Address [facility]/ZIP Co de Phone Number [facility] [address] [place] [phone] * Hepatitis C Antibody with Reflex to HCV, RNA, Quantitative, Real-Time PCR (07/12/2023 2:07 PM EDT) [facility] Hepatitis C Antibody Nonreactive Nonreactive [facility] Comment:Antibodies to HCV no t detected; does not exclude early acuteHCV infection. Blood Venous blood specimen / Unknown 07/12/2023 2:07 PM EDT 07/12/2023 4:12 PM EDT Laisha Arauz MD LAB BLOOD ORDERABLES Final Res ult Performing Organization Address [facility] Co de Phone Number [facility] [address] [place] [phone] * HIV-1/2 Antigen and Antibodies, Fourth Generation, with Reflexes (07/12/2023 2:07 PM EDT) Pathologist [facility] HIV AB/AG Nonreactive Nonreactive [facility] Comment:HIV-1 p24 Ag and/or HIV-1/HIV-2 Ab not detected.A test result that is nonreactive does not exclude thepossibility of exposure to or infection with HIV-1 and/orHIV-2. Nonreactive results in this assay for individualswith prior exposure to HIV-1 and/or HIV-2 may be due toantigen and antibody levels that are below the limit ofdetection of this assay.The [employer]Quest HIV Ag/Ab Combo assay result andsupplemental assay results should be interpreted inconjunction with the patient's clinical presentation,history and other laboratory results. If the results areinconsistent with clinical evidence, additional testing issuggested to confirm the result. Blood Venous blood specimen / Unknown 07/12/2023 2:07 PM EDT 07/12/2023 4:12 PM EDT us Laisha Arauz MD LAB BLOOD ORDERABLES Final Res ult Performing Organization Address [facility] Co de Phone Number [facility] [address] [place] [phone] * (ABNORMAL) Lipid Panel, Standard (03/27/2023 9:48 AM EST) Triglycerides 196(H) <150 mg/dL [facility] Comment:Desirable Triglyceri de: less than 150 mg/dLBorderline High Triglyceride 150-199 mg/dLHigh Triglyceride: 200-499 mg/dLVery High Triglyceride: greater than or equal to 5OO mg/dL Cholesterol 183 <200 mg/dL [facility] Comment:Desirable Cholestero l: less than 200 mg/dLBorderline High Cholesterol: 200-239 mg/dLHigh Cholesterol: greater than 239 mg/dL LDL Cholesterol Calculated 103(H) <100 mg/dL [facility] Comment:Desirable LDL: less than 100 mg/dLNear Optimal/Above Optimal LDL: 110- 129 mg/dLBorderline High LDL: 130-159 mg/dLHigh LDL: 160-189 mg/dLVery High LDL: greater than or equal to 190 mg/dL HDL Cholesterol 41 >40 mg/dL [facility] Comment:Desirable HDL: great er than 40 mg/dL Note: This HDL assay may give artificially low results in patients with liver disease. Blood Venous blood specimen / Unknown 03/27/2023 9:48 AM EST 03/27/2023 2:40 PM EST us Daniel Persaud MD LAB BLOOD ORDERABL ES Final Result Performing Organization Address [facility]/ZIP Co de Phone Number [facility] [address] [place] [phone] * THINPREP TIS PAP AND HPV mRNA E6/E7 REFLEX HPV 16,18/45 (02/22/2021 9:30 AM EST) Clinical Information: None given [facility] COMMENT SEE COMMENT [facility]OUND[facility] ON [...] has been evaluated with computer assisted technology. [employer] [facility] High Pressure Firer: SEE COMMENT [facility] Comment: CXP, CT(ASCP) CT screening location: [place] [address] HPV nRNA E6/E7 Not Detected Not Detected [facility] Comment: Methodology: Floor Tiling Professional-Mediated Amplification This assay detects E6/E7 viral messenger RNA (mRNA) from 14 high-risk HPV types (16,18,31,33,35,39,45,51,52,56,58,59,66,68). The analytical performance characteristics of this assay have been determined by [employer]. The modifications have not been cleared or approved by the FDA. This assay has been validated pursuant to the CLIA regulations and is used for clinical purposes. For additional information, please refer to http://education.Kato/faq/VHX586b8 (This link if provided for information/ educational purposes only.) Infection Shift in vaginal jeane suggestive of bacterial vaginosis. [employer] [facility] Interpretation/Re sult: Negative for intraepithelial lesion or malignancy. [employer] [facility] LMP: 02/16/21 [employer] [facility] Prev. BX: NONE GIVEN [facility]OUND[facility] N LAB SYSTEM Prev. PAP: NONE GIVEN [facility]OUND[facility] ON LAB SYSTEM SOURCE: None given [facility] Statement Of Adequacy: SEE COMMENT [facility] Comment: Satisfactory for evaluation. Endocervical/transformation zone component present. 02/22/2021 9:30 AM EST [facility] PATHOLOGY ORDERABLES Final Result [facility] [address] from Last 3 Months or Most Recently Relevant to Health Maintenance Insurance [facility] ONE CARE < [address] [place] [id number] Care Teams Environmental Field Professional Relationship Specialty Start Date End Date Daniel Gutierrez MD [address] [place] [phone] PCP - General Internal Medicine 08/28/19 [facility] 08/28/19
--- OUTSIDE RECORDS SUMMARY | 2025-02-13 15:47 | XMS_ITS | Encounter Summary ---
Author Organization [email or web address] Address [address] [facility] 7t [place] [address] Care Team Providers Care Bowling Alley Floors Installer Name Role Phone Daniel Gutierrez MD Primary Care Prov ider Encounter Details Date Type Department Care Team ([facility] st Contact Info) Description 12/12/2023 Orders Only [facility] [address] [place], [place] [id number] Jaime Rose MD [address] [place], [place] [phone] Social History Tobacco Use Types Packs/Day Years [...] 03/09/2025 8:30 AM EST Telemedicine [facility] MED & PEDS [address] [place] [address] Daniel Gutierrez MD [address] [place] [address] documented as of this encounter Visit Diagnoses Not on filedocumented in this encounter Additional Health Concerns Assessment Noted Time PHQ-9 Depression Total Score: 0 03/27/20 23 8:55 AM EST documented as of this encounter Care Teams Bowling Alley Floors Installer Relationship Specialty Start Date End Date Daniel Gutierrez MD [address] [place] [address] PCP - General Internal Medicine 08/28/19 [facility] 08/28/19 documented as of this encounter
--- OUTSIDE RECORDS SUMMARY | 2025-02-13 15:47 | XMS_ITS | Encounter Summary ---
Author Organization [employer] Address 75 [facility] 7 [place] [address] Care Team Providers Care Senior Process Control Tech Name Role Phone Daniel Gutierrez MD Primary Care Prov ider Reason for Visit * Reason Onset Date Comments Med Refill 11/20/2024 Encounter Details Date Type Department Care Team (Late st Contact Info) Description 11/20/[address] [facility] MEDICINE [address] [place] [address] Daniel Gutierrez MD [address] [place] [address] Med Refill Social History Tobacco Use Types [...] Tc from pt requesting to speak to marketing and communications officer regarding medication refill request nicotine (Nicoderm, Step [...] 21 MG/24HR patch To be sent to: [facility]/pharmacy #[id number] - [place] - [address] [place] [address] documented in this encounter Plan of Treatment Upcoming Encounters Date Type Department Care Team ([facility] st Contact Info) Description 03/09/2025 8:30 AM EST Telemedicine [facility] [address] [place] [address] Daniel Gutierrez MD [address] [place] [address] documented as of this encounter Visit Diagnoses Not on filedocumented in this encounter Additional Health Concerns Assessment Noted Time PHQ-9 Depression Total Score: 0 03/27/20 23 8:55 AM EST documented as of this encounter Care Teams Senior Process Control Tech Relationship Specialty Start Date End Date Daniel Gutierrez MD [address] [place] [address] PCP - General Internal Medicine 08/28/19 [facility] 08/28/19 documented as of this encounter
--- OUTSIDE RECORDS SUMMARY | 2025-02-13 15:48 | XMS_ITS | Encounter Summary ---
Author Organization [employer] Address [address] [facility] 7 [place] [address] Care Team Providers Care Psychiatric Clinical Nurse Specialist Name Role Phone Daniel Gutierrez MD Primary Care Prov ider Reason for Visit * Reason Onset Date Comments Results 03/29/2023 Encounter Details Date Type Department Care Team ([facility] st Contact Info) Description 03/29/2023 Telephone [facility] MEDICINE [address] [place] [address] Daniel Gutierrez MD [address] [place] [address] Results Social History Tobacco Use Types Packs/Day [...] Info) Description 03/09/2025 8:30 AM EST Telemedicine [facility] CHC MED & PEDS [address] [place] [address] Daniel Gutierrez MD [address] [place] [address] documented as of this encounter Visit Diagnoses Not on filedocumented in this encounter Additional Health Concerns Assessment Noted Time PHQ-9 Depression Total Score: 0 03/27/20 8:55 AM EST documented as of this encounter Care Teams Psychiatric Clinical Nurse Specialist Relationship Specialty Start Date End Date Daniel Gutierrez MD [address] [place] [address] PCP - General Internal Medicine 08/28/19 [facility] 08/28/19 documented as of this encounter
--- OUTSIDE RECORDS SUMMARY | 2025-02-13 15:48 | XMS_ITS | Encounter Summary ---
Author Organization [employer] Address [address] [place] [address] 7t [place] [address] Care Team Providers Care Control Systems Engineer Name Role Phone Daniel Gutierrez MD Primary Care Prov ider Reason for Visit * Reason Comments Med Change Request Encounter Details Date Type Department Care Team ([facility] st Contact Info) Description 01/19/2025 Refill [facility] MED & PEDS [address] [place] [address] Agustina Pérez MD [address] [place] [address] Social History Tobacco Use Types Packs/Day Years [...] Info) Description 03/09/2025 8:30 AM EST Telemedicine [facility] MED & PEDS [address] [place] [address] Daniel Gutierrez MD [address] [place] [address] documented as of this encounter Visit Diagnoses Not on filedocumented in this encounter Additional Health Concerns Assessment Noted Time PHQ-9 Depression Total Score: 0 03/27/20 23 8:55 AM EST documented as of this encounter Care Teams Control Systems Engineer Relationship Specialty Start Date End Date Daniel Gutierrez MD [address] [place] [address] PCP - General Internal Medicine 08/28/19 [facility] 08/28/19 documented as of this encounter
--- OUTSIDE RECORDS SUMMARY | 2025-02-13 15:48 | XMS_ITS | Encounter Summary ---
Author Organization [employer] Address [address] [place] [address] Care Team Providers Care Desizing Machine Offbearer Name Role Phone Daniel Gutierrez MD Primary Care Prov ider Encounter Details Date Type Department Care Team ([facility] Contact Info) Description 02/22/2023 Orders Only [facility] MED & PEDS [address] [place] [address] Daniel Gutierrez MD [address] [place] [address] Social History Tobacco Use Types Packs/Day Years [...] Info) Description 03/09/2025 8:30 AM EST Telemedicine [facility] CH[facility] MED & PEDS [address] [place] [address] Daniel Gutierrez MD [address] [place] [address] documented as of this encounter Visit Diagnoses Not on filedocumented in this encounter Care Teams Desizing Machine Offbearer Relationship Specialty Start Date End Date Daniel Gutierrez MD [address] [place] [address] PCP - General Internal Medicine 08/28/19 [facility] 08/28/19 documented as of this encounter
--- OUTSIDE RECORDS SUMMARY | 2025-02-13 15:48 | XMS_ITS | Encounter Summary ---
Author Organization [employer] Address [address] [place] [address] 7 [place] [address] Care Team Providers Care Band Cutter Name Role Phone Daniel Gutierrez MD Primary Care Prov ider Encounter Details Date Type Department Care Team ([facility] Contact Info) Description 05/16/2023 Orders Only [facility] CHC MED & PEDS [address] [place] [address] Daniel Gutierrez MD [address] [place] [address] Social History Tobacco Use Types Packs/Day Years [...] Info) Description 03/09/2025 8:30 AM EST Telemedicine [facility] MED & PEDS [address] [place] [address] Daniel Gutierrez MD [address] [place] [address] documented as of this encounter Visit Diagnoses Not on filedocumented in this encounter Additional Health Concerns Assessment Noted Time PHQ-9 Depression Total Score: 0 03/27/20 23 8:55 AM EST documented as of this encounter Care Teams Band Cutter Relationship Specialty Start Date End Date Daniel Gutierrez MD [address] [place] [address] PCP - General Internal Medicine 08/28/19 [facility] 08/28/19 documented as of this encounter
--- OUTSIDE RECORDS SUMMARY | 2025-02-13 15:48 | XMS_ITS | Encounter Summary ---
Author Organization [employer] Address [address] [place] [address] Care Team Providers Care Global Cmo Name Role Phone Daniel Gutierrez MD Primary Care Prov ider Reason for Visit * Reason Onset Date Comments Medication Question 04/03/2023 Encounter Details Date Type Department Care Team ([facility] st Contact Info) Description 04/03/2023 Telephone [facility] CHC MED & PEDS [address] [place] [address] Daniel Gutierrez MD [address] [place] [address] Medication Question Social History Tobacco Use Types [...] Phychiatric of this. Please contact pt @ [phone] documented in this encounter Plan of Treatment Upcoming Encounters Date Type Department Care Team ([facility] st Contact Info) Description 03/09/2025 8:30 AM EST Telemedicine [facility] MED & PEDS [address] [place] [address] Daniel Gutierrez MD [address] [place] [address] documented as of this encounter Visit Diagnoses Not on filedocumented in this encounter Additional Health Concerns Assessment Noted Time PHQ-9 Depression Total Score: 0 03/27/20 23 8:55 AM EST documented as of this encounter Care Teams Global Cmo Relationship Specialty Start Date End Date Daniel Gutierrez MD [address] [place] [address] PCP - General Internal Medicine 08/28/19 [facility] 08/28/19 documented as of this encounter
--- OUTSIDE RECORDS SUMMARY | 2025-02-13 15:48 | XMS_ITS | Encounter Summary ---
Author Organization [employer] Address [address] [address] Care Team Providers Care Liner Roll Changer Name Role Phone Daniel Gutierrez MD Primary Care Prov ider Reason for Visit * Reason Onset Date Comments Lab Orders 03/14/2023 Encounter Details Date Type Department Care Team (Late st Contact Info) Description 03/14/2023 Telephone [facility] MEDICINE [address] [place] [address] Daniel Gutierrez MD [address] [place] [address] Lab Orders Social History Tobacco Use Types [...] Upcoming Encounters Date Type Department Care Team ([facility] st Contact Info) Description 03/09/2025 8:30 AM EST Telemedicine [facility] MED [facility] PEDS [address] [place] [address] Daniel Gutierrez MD [address] [place] [address] documented as of this encounter Visit Diagnoses Not on filedocumented in this encounter Care Teams Liner Roll Changer Relationship Specialty Start Date End Date Daniel Gutierrez MD [address] [place] [address] PCP - General Internal Medicine 08/28/19 [facility] 08/28/19 documented as of this encounter
--- OUTSIDE RECORDS SUMMARY | 2025-02-13 15:48 | XMS_ITS | Encounter Summary ---
Author Organization [employer] Address [address] [place] [address] [place] [address] Care Team Providers Care Motor Vehicle Examiner Name Role Phone Daniel Gutierrez MD Primary Care Prov ider Reason for Visit * Reason Onset Date Comments Medication Question 01/19/2025 Encounter Details Date Type Department Care Team ([facility] st Contact Info) Description 01/19/2025 Telephone [facility] CHC MED & PEDS [address] [place] [address] Daniel Gutierrez MD [address] [place] [address] Medication Question Social History Tobacco Use Types [...] encounter Miscellaneous Notes * Telephone Encounter - Elena Cadet - 01/19/2025 10:09 AM EDT Tc from pt stating pharmacy advised they can not fill one of the medications due to having questions they need to discuss with pcp Contact pt at [phone] documented in this encounter Plan of Treatment Upcoming Encounters Date Type Department Care Team (Late st Contact Info) Description 03/09/2025 8:30 AM EST Telemedicine [facility] MED & PEDS [address] [place] [address] Daniel Gutierrez MD [address] [place] [address] documented as of this encounter Visit Diagnoses Not on filedocumented in this encounter Additional Health Concerns Assessment Noted Time PHQ-9 Depression Total Score: 0 03/27/20 23 8:55 AM EST documented as of this encounter Care Teams Motor Vehicle Examiner Relationship Specialty Start Date End Date Daniel Gutierrez MD [address] [place] [address] PCP - General Internal Medicine 08/28/19 [facility] 08/28/19 documented as of this encounter
== END 2025-02-13 15:44 | disposition home or self-care (01) ==
LOC: HO.HHCX 15:43
PROVIDERS: Visit Provider Nurse Practitioner
DX: K59.00 Constipation, unspecified (principal)
CPT/HCPCS: 74018

== ENCOUNTER → 2025-02-13 15:43 | Outpatient (BNV) | payer OTHER, SELFPAY | PROVIDERS: Visit Provider Radiology Diagnostic Radiology | DX: K59.00 Constipation, unspecified (principal) | CPT/HCPCS: 74018 ==